=== PATIENT | female | born 1955 | race Caucasian/White ===

== ENCOUNTER → 2017-11-13 | Outpatient (CLI) | payer MEDICAID ==
[2017-10-19 10:53] VITALS: BMI 40.7
[~2017-11-13] MED LIST: ACET-2031 PO; ACET-3017 PO; ACET500T68 PO; ALB6.7R INH; ALBU2.5V36 INH; ALBU8.5H IH; AZIT-18 PO; AZIT500T47 PO; Advair; CEFU250T11 PO; CEP500 PO; CIP500 PO; CLIN75CA3 PO; CLOT15CR63 TP; CYCL10TA29 PO; CYCLOBENZAPRINE PO; DICL100G39 TP; DOC100 PO; DOCU-202 PO; DOXY-181 PO; DULO30CA35 PO; EFFEXOR PO; FLUC150T40 PO; FLUT16SP19 NS; FLUT1DIS28 IH; FURO-45 PO; FURO-47 PO; FURO40TA35 PO; GABA-503 PO; GABA-549 PO; HYDR-2966 PO; HYDR-3083 PO; HYDR-3104 PO; HYDR-385 PO; HYDR-4309 PO; HYDR1TAB PO; HYDR2TAB74 PO; HYDR50CA47 PO; IBUP800T37 PO; IPRA3AMP21 IH; LEVO-85 PO; LEVO50TA80 PO; LEVO750T27 PO; LEVO750T44 PO; LEVO75TA73 PO; LEVOTHYROXINE; LOR5 PO; LOR5/325 PO; LORA-1221 PO; MELO-149 PO; METH4TAB66 PO; MUPI15CR2 TP; NAPR500T31 PO; NO PRESCRIPTION MEDS; NO ROUTINE MEDS; OMEP40CA48 PO; OND4 PO; ONDA4TAB9 PO; ONDA4TAB97 PO; OXYC-865 PO; OXYC5CAP21 PO; PARO-243 PO; PER PO; POTA-23 PO; POTA20TA85 PO; PRAV80TA29 PO; PRAVASTATIN PO; PRE200PT GT; PRE200PT PO; PRED-1 PO; PRED-314 PO; PRED-420 PO; PRED20TA6 PO; PRED50TA22 PO; PREG100C44 PO; PREG150C33 PO; PREG75CA60 PO; PROM-110 PO; SIMV-49 PO; TIO18R INH; TRA50 PO; TRAM-420 PO; TRIA15OI20 TP; TYLENOL; VENL150C3 PO; VENL37.53 PO; VENL75CA4 PO; VENL75CA58 PO; [UNRECOGNIZED DRUG - CODE] PO; [UNRECOGNIZED DRUG - CODE] PO; [UNRECOGNIZED DRUG - REMARK]; compression stocking TOP
--- NOTE | 2017-11-13 13:42 | RADIOLOGY IMAGING REPORT ---
FACILITY: [facility] PATIENT NAME: Bushra Campos : 1955 MR: [id number] V: [id number] EXAM DATE: ORDERING PHYSICIAN: FRANCIS PEDRO TECHNOLOGIST: [place] [facility] [place]: Bushra Campos : 1955 Visit/Account:[id number] Date of Sevice: 11/13/2017 Exam type: SHOULDER MIN 2 VIEWS RIGHT History: Pain and no known injury Comparison: None. Findings: Two views of the right shoulder demonstrate mild narrowing of the right glenohumeral joint. There is no evidence of acute fracture dislocation or lytic or blastic lesion. There are mild degenerative c hanges at the right AC joint IMPRESSION: 1. Mild narrowing at the right glenohumeral joint. Report Dictated By: Annalee Palumbo MD at 11/13/2017 1:36 PM Report E-Signed By: Annalee Palumbo MD at 11/13/2017 1:37 PM WSN:[email or web address]
== END ==
LOC: RAD 11:57
PROVIDERS: ATTEND Internal Medicine
DX: M25.511 Pain in right shoulder (principal)

== ENCOUNTER → 2017-12-09 | Outpatient (CLI) | payer MEDICAID ==
[2017-10-19 10:53] VITALS: BMI 40.7
[~2017-12-09] MED LIST changes: +AZIT-17 PO
[2017-12-09 17:16] LABS: PLATELET COUNT, AUTOMATED 263 K/uL (150-450)
== END ==
LOC: LAB 16:43
PROVIDERS: ATTEND Internal Medicine
DX: R10.9 Unspecified abdominal pain (principal); M54.9 Dorsalgia, unspecified; E66.01 Morbid (severe) obesity due to excess calories; J44.9 Chronic obstructive pulmonary disease, unspecified; M19.90 Unspecified osteoarthritis, unspecified site; K75.81 Nonalcoholic steatohepatitis (NASH); Z96.642 Presence of left artificial hip joint; G89.29 Other chronic pain; Z68.41 Body mass index [BMI] 40.0-44.9, adult
CPT/HCPCS: 36415; 81001; 82040; 82150; 82247; 82310; 82374; 82435; 82565; 82947; 83690; 84075; 84132; 84155; 84295; 84443; 84450; 84460; 84520; 85025

== ENCOUNTER → 2018-01-08 | Outpatient (CLI) | payer MEDICAID ==
[2017-10-19 10:53] VITALS: BMI 40.7
== END ==
LOC: LAB 11:06
PROVIDERS: ATTEND Internal Medicine
DX: Z02.9 Encounter for administrative examinations, unspecified (principal)

== ENCOUNTER → 2018-01-08 | Outpatient (CLI) | payer MEDICAID ==
[2017-10-19 10:53] VITALS: BMI 40.7
--- NOTE | 2018-01-08 12:08 | RADIOLOGY IMAGING REPORT ---
[place] [facility] [place]: Bushra Campos : 1955 MR: [id number] V: [id number] EXAM DATE: ORDERING PHYSICIAN: FRANCIS PEDRO TECHNOLOGIST: Location: [facility] Patient: Bushra Campos : 1955 Visit/Account:[id number] Date of Sevice: 01/08/2018 Chest with lateral, two views. HISTORY: Cough for one month, COPD. COMPARISON: 11/02/2017. Mild cardiomegaly is unchanged. The aortic knob is minimally calcified. Pulmonary vessels are parker l. Interstitial markings are thickened bilaterally, unchanged. The lungs are voluminous. Mild stre aky densities are present in the lung bases. No pleural fluid. Degenerative changes are present in the spine. IMPRESSION: Mild cardiomegaly without arpita congestive heart failure. COPD. Mild bibasilar subsegmental atelectasis or pleural parenchymal scars. Report Dictated By: Faustino Wolf MD at 01/08/2018 12:01 PM Report E-Signed By: Faustino Wolf MD at 01/08/2018 12:04 PM WSN:[email or web address]
== END ==
LOC: LAB 11:05
PROVIDERS: ATTEND Internal Medicine
DX: J44.1 Chronic obstructive pulmonary disease with (acute) exacerbation (principal); I51.7 Cardiomegaly; R91.8 Other nonspecific abnormal finding of lung field; F11.90 Opioid use, unspecified, uncomplicated
CPT/HCPCS: 71046; 80305

== ENCOUNTER → 2018-03-12 | Outpatient (CLI) | payer MEDICARE ==
[2017-10-19 10:53] VITALS: BMI 40.7
[~2018-03-12] MED LIST changes: +MELO-207 PO; +MILN12.52 PO; +OMEP-125 PO
[2018-03-12 12:09] LABS: PLATELET COUNT, AUTOMATED 259 K/uL (150-450)
--- NOTE | 2018-03-12 13:22 | RADIOLOGY IMAGING REPORT ---
FACILITY: [facility] [place] PATIENT NAME: Bushra Campos : 1955 MR: [id number] V: [id number] EXAM DATE: ORDERING PHYSICIAN: FRANCIS PEDRO TECHNOLOGIST: Location: [facility] Patient: Bushra Campos : 1955 Visit/Account:[id number] Date of Sevice: 03/12/2018 Exam type: FOOT 2 VIEW LEFT History: Stepped on tack two months ago, still painful Comparison: None. Findings: Two views of the left foot reveal no evidence of acute fracture dislocation or radiopaque soft tissue foreign body. There is a hallux valgus deformity involving the left first MTP joint with mild degen erative changes. IMPRESSION: 1. No evidence of radiopaque foreign body. No evidence of acute fracture or dislocation Hallux valgus deformity of the left first MTP joint Report Dictated By: Annalee Palumbo MD at 03/12/2018 1:17 PM Report E-Signed By: Annalee Palumbo MD at 03/12/2018 1:18 PM WSN:[email or web address]
== END ==
LOC: RAD 11:48
PROVIDERS: ATTEND Internal Medicine
DX: M20.12 Hallux valgus (acquired), left foot (principal); M15.0 Primary generalized (osteo)arthritis; M79.672 Pain in left foot
CPT/HCPCS: 36415; 82040; 82247; 82310; 82374; 82435; 82465; 82565; 82947; 83036; 83718; 84075; 84132; 84155; 84295; 84443; 84450; 84460; 84478; 84520; 85025

== ENCOUNTER 2018-05-07 10:54 | Outpatient (RCR) | payer MEDICARE, MEDICAID ==
[2017-10-19 10:53] VITALS: Ht 160 cm; Wt 115.7 kg
[~2018-05-07] VITALS: Ht 160 cm; Wt 115.7 kg
[~2018-05-07 10:54] MED LIST changes: +DICL-192 PO; +IPRA3AMP10 IH; -IPRA3AMP21 IH; +MIL50PT PO
--- NOTE | 2018-05-07 13:09 | Medical Nutrition Therapy ---
Nutrition Anthropometrics Height (Inches): 63 Weight (Pounds): 268 BMI: 47.5 Reno Nutrition Score: Reno Nutrition Risk Score: Dietary Referral Nutrition Risk Factors: Nutrition Risk Comment: Nutrition/Food History Breakfast: skips or Palmer sausage muffin and 4 hash brown patties Lunch: skips Dinner: meat, veg, 2c potatoes or hungery man's TV dinner Snacks: fruit, diet pepsi, candy Nutritional Education Nutrition Education Topic: Weight Loss Diet Learning Barriers: Emotional (pt states hx of depression, seeing counselor- refused visti with [facility] staff today) Learning Readiness: Interested Teaching Methods: Discussion, Handout, Demonstration Response to Teaching: Verbalize understanding, Reinforcement needed Teaching Recipient: Patient Nutrition Counseling: Pt states is planning to have gastric bypass and would like nutrtional couseling as required by medicaid prior to surgery. Discussed importance of changing eating habits to make surgery successful. Pt is purchasing homestyle meal direct and will be eating these meals 3X/day. Identified meals that were < 500 kcal. Recommend pt have 2 snacks/day of 100 kcal with unlimited veg. Encouraged lower fat options for hash brown and regular yogurt. Discouraged skipping meals. Discussed standard portion sizes. Pt will start homestyle meals ~05/24. set up f/u one 06/04 @ 10:00. Will focus on emotional eating. Nutrition Monitoring & [address] RD Patient Assessment Time: 60 minutes Nutritional Comment: Provided 60 minutes MNT for wt loss with BMI 47.5 Copies To Copies to: FRANCIS PEDRO MD, BETH May 07, 2018 13:09
[2018-06-04] MEDS ORDERED: ALBU8.5H IH (08:24)
[2018-06-04] MEDS ORDERED: TIO18R INH (08:24)
[2018-06-04] MEDS ORDERED: IPRA3AMP10 IH (08:24)
[2018-06-04] MEDS ORDERED: SIMV-54 PO (08:27)
[2018-06-04] MEDS ORDERED: [UNRECOGNIZED DRUG - CODE] PO (08:27)
[2018-06-04] MEDS ORDERED: VAR05PT PO (08:31)
[2018-06-04] MEDS ORDERED: VARE1TAB3 PO (08:31)
--- NOTE | 2018-06-04 11:09 | Medical Nutrition Therapy ---
Nutrition Anthropometrics Height (Inches): 63 Weight (Pounds): 255 BMI: 45.2 Reno Nutrition Score: Reno Nutrition Risk Score: Dietary Referral Nutrition Risk Factors: Nutrition Risk Comment: Nutritional Education Nutrition Education Topic: Weight Loss Diet Learning Readiness: Interested Teaching Methods: Discussion, Handout Response to Teaching: Verbalize understanding Teaching Recipient: Patient Nutrition Counseling: Wt down 13# from last month. Pt was unable to get homestlye meal but is now on medicare and will start them this month. Pt has been monitoring kcal and limiting to 1500- 2000/day. Pt is working on changing eating habits: doing more grilling, not frying foods, limiting potatoes. Pt is also trying to incorporate more exercise. Has been walking into stores and using a bounce ball. Recommend pt also use bouce ball when on computer. Discussed emotional eating, recommend identifying hungar or emotional eating. Discussed methods to handle with distracting , haveing low kcal foods to snack on, taking walk, meditation. Also recommend pt discuss issues behind emotional eating with her counselor. Pt will f/u Jul 02 at 10:00. Nutrition Monitoring & Eval RD Patient Assessment Time: 45 minutes Nutritional Comment: Provided 45 minutes MNT for wt loss with BMI 45.2 Copies To Copies to: FRANCIS PEDRO MD, BETH Jun 04, 2018 11:09
[2018-06-08] MEDS ORDERED: FURO40TA35 PO (15:24)
[2018-06-25] MEDS ORDERED: ONDA4TAB PO (12:49)
== END 2018-06-11 ==
LOC: DIET 10:54
PROVIDERS: ATTEND Internal Medicine
DX: Z71.3 Dietary counseling and surveillance (principal); E66.01 Morbid (severe) obesity due to excess calories; Z68.42 Body mass index [BMI] 45.0-49.9, adult; M19.90 Unspecified osteoarthritis, unspecified site; G89.29 Other chronic pain
CPT/HCPCS: 97802; 97803

== ENCOUNTER 2018-07-06 10:00 | Outpatient (RCR) | payer MEDICARE, MEDICAID ==
[2017-10-19 10:53] VITALS: Ht 160 cm; Wt 114.3 kg
[~2018-07-06] VITALS: Ht 160 cm; Wt 114.3 kg
[~2018-07-06 10:00] MED LIST changes: +ONDA4TAB PO; +SIMV-54 PO; +VAR05PT PO; +VARE1TAB3 PO; +[UNRECOGNIZED DRUG - CODE] PO
--- NOTE | 2018-07-06 12:40 | Medical Nutrition Therapy ---
Nutrition Anthropometrics Height (Inches): 63 Weight (Pounds): 251 BMI: 44.4 Reno Nutrition Score: Reno Nutrition Risk Score: Dietary Referral Nutrition Risk Factors: Nutrition Risk Comment: Physical Findings Physical Appearance: Morbidly Obese 40+ Skin Appearance Skin Appearance: Edema Edema Location Modifier: Edema Location: Type of Edema: Degree of Edema: Gastrointestinal Symptoms GI Symtoms: Tube Present: Bowel Sounds: Recent Bowel Pattern: Stool Characteristics: Nutrition/Food History Breakfast: skips Lunch: homestyle meal or 4 c goulash or potates Dinner: Homstyle meal or 4 c pasta Snacks: carrots, diet soda Nutritional Education Nutrition Education Topic: Weight Loss Diet Learning Barriers: Emotional (binge eating issues) Learning Readiness: Eager, Interested Teaching Methods: Discussion, Handout, Demonstration Response to Teaching: Verbalize understanding, Reinforcement needed Teaching Recipient: Patient Nutrition Counseling: Wt is down 3# from last month, 17# from first session. Pt states has been stuggling with not eating enought and then binges. Pt's tends to skip meals and will undereat a day then will binge to a point where pt states she feels sick. Reviewed handout with tips to avoid binge eating. Discussed meal plan and recommend pt cont with 2 homstlye meal/day with added veg and 3c milk/day. Pt's usual portion sizes are large when she does eat. Will review portion control at next session onf 08/05. Nutrition Monitoring & Eval RD Patient Assessment Time: 60 minutes Nutritional Comment: Provided 60 minutes MNT for wt loss with BMI 44.4 Copies To Copies to: FRANCIS PEDRO MD ; FELICITA YEN Jul 06, 2018 12:40
[2018-08-05] MEDS ORDERED: ATOR40TA69 PO (10:30)
[2018-08-05] MEDS ORDERED: ONDA4TAB PO (10:30)
[2018-08-05] MEDS ORDERED: PRE200PT PO (10:30)
[2018-08-05] MEDS ORDERED: FLU60SYR36 IM (10:37)
--- NOTE | 2018-08-05 17:27 | Medical Nutrition Therapy ---
Nutrition Anthropometrics Height (Inches): 63 Weight (Pounds): 252 BMI: 44.6 Reno Nutrition Score: Reno Nutrition Risk Score: Dietary Referral Nutrition Risk Factors: Nutrition Risk Comment: Nutrition/Food History Breakfast: sausage, egg muffin and lg FF or skips Lunch: homestyle meals Dinner: homestyle meals Snacks: yogurt Nutritional Education Nutrition Education Topic: Weight Loss Diet Learning Readiness: Interested Teaching Methods: Discussion Response to Teaching: Verbalize understanding Teaching Recipient: Patient Nutrition Counseling: Pt states gets homestyle meals that are paid for with her medicaid benefits. Pt reports she has limited financial resources. Pt states however that she doesn't like the meals and will often augment them with other foods. Will look for alternative for homestyle meal. Recommended pt try MOW but pt states can't afford them. Pt states she does binge with foods. Discussed homestyle meals as good portion control and encouraged pt to measure foods to help with portion control. Pt states has a portion control plate but doesn't use it. Pt wasn't interested in measuring foods. Discussed exercise, pt states unable d/t knee. Pt indicated that she was more interested in having knee surgery than bypass surgery. Concern that pt may not be ready/willing to make diet changes for bypass surgery. Encouraged pt to discuss this with PCP. Pt will review her schedule and call for f/u. Nutrition Monitoring & Eval RD Patient Assessment Time: 30 minutes Nutritional Comment: Provided 30 minutes MNT for wt loss with BMI 44.6 Copies To Copies to: FRANCIS PEDRO MD ; FELICITA YEN Aug 05, 2018 15:56
== END 2018-08-10 ==
LOC: DIET 10:00
PROVIDERS: ATTEND Internal Medicine
DX: Z71.3 Dietary counseling and surveillance (principal); E66.01 Morbid (severe) obesity due to excess calories; Z68.42 Body mass index [BMI] 45.0-49.9, adult; M19.90 Unspecified osteoarthritis, unspecified site; G89.29 Other chronic pain
CPT/HCPCS: 97803

== ENCOUNTER 2018-09-08 11:31 | Outpatient (RCR) | payer MEDICARE, MEDICAID ==
[2017-10-19 10:53] VITALS: Wt 116.1 kg
--- NOTE | 2018-09-09 12:23 | Medical Nutrition Therapy ---
Nutrition Anthropometrics Height (Inches): 63 Weight (Pounds): 256 BMI: 45.3 Reno Nutrition Score: Reno Nutrition Risk Score: Dietary Referral Nutrition Risk Factors: Nutrition Risk Comment: Nutrition/Food History Breakfast: breakfast sandwich Lunch: Mom's meal Dinner: mom's meal Nutritional Education Nutrition Education Topic: Weight Loss Diet Learning Readiness: Interested Teaching Methods: Discussion Response to Teaching: Verbalize understanding Teaching Recipient: Patient Nutrition Counseling: late entry for 09/08: Wt up 5#. Pt has been ill and possibly eating high kcal comfort foods and decreased exercise. Pt has changed to Mom's meal. Upon reviewing meal, kcals are higher than Homestyle meals which may contribute to wt gain. However pt disliked homestyle meals and wouldn't eat them. Reviewed menus with pt and recommend she save juices for snack and not eat the desserts. Meal plan of 2 Mom's meals/day, breakfast sandwich and limiting snacks to veggies, lean luncheon meats and juices should be a wt loss plan. Pt will do 10 minutes of exercise ball/day. f/u schedule 09/29 @ 12:00 Nutrition Monitoring & Eval RD Patient Assessment Time: [address] Assessment Type: RD Education Nutritional Comment: Provided 60 minutes MNT for wt loss with BMI 45.3 Copies To Copies to: FRANCIS PEDRO MD ; FELICITA YEN Sep 09, 2018 12:23
[2018-09-10] MEDS ORDERED: CIPR-345 PO (11:35)
[2018-09-15] MEDS ORDERED: DICL-192 PO (08:24)
[2018-10-09] MEDS ORDERED: VARE1TAB3 PO (14:43)
== END 2018-10-13 ==
LOC: DIET 11:31
PROVIDERS: ATTEND Internal Medicine
DX: Z71.3 Dietary counseling and surveillance (principal); E66.01 Morbid (severe) obesity due to excess calories; Z68.42 Body mass index [BMI] 45.0-49.9, adult; M19.90 Unspecified osteoarthritis, unspecified site; G89.29 Other chronic pain
CPT/HCPCS: 97803

== ENCOUNTER → 2018-09-08 | Outpatient (CLI) | payer MEDICARE, MEDICAID ==
[2017-10-19 10:53] VITALS: BMI 40.7
[~2018-09-08] MED LIST changes: +ATOR40TA69 PO; +FLU60SYR36 IM; -HYDR-4309 PO; +HYDR-653 PO
[2018-09-08 11:46] LABS: PLATELET COUNT, AUTOMATED 282 K/uL (150-450)
[2018-09-08 12:00] LABS: LDL CHOLESTEROL 66 mg/dl
== END ==
LOC: LAB 11:29
PROVIDERS: ATTEND Internal Medicine
DX: J44.9 Chronic obstructive pulmonary disease, unspecified (principal); E78.5 Hyperlipidemia, unspecified; E66.01 Morbid (severe) obesity due to excess calories; M19.90 Unspecified osteoarthritis, unspecified site; G89.29 Other chronic pain; E03.9 Hypothyroidism, unspecified
CPT/HCPCS: 36415; 81001; 82040; 82247; 82310; 82374; 82435; 82465; 82565; 82947; 83718; 84075; 84132; 84155; 84295; 84443; 84450; 84460; 84478; 84520; 85025; 87088

== ENCOUNTER → 2018-09-24 | Outpatient (CLI) | payer MEDICARE, MEDICAID ==
[2017-10-19 10:53] VITALS: BMI 40.7
[~2018-09-24] MED LIST changes: +CIPR-345 PO
--- NOTE | 2018-09-24 13:54 | RADIOLOGY IMAGING REPORT ---
FACILITY: [facility] [place] PATIENT NAME: KEYANA MORLEY : [id number] MR: [id number] V: [id number] EXAM DATE: [id number] ORDERING PHYSICIAN: FRANCIS PEDRO TECHNOLOGIST: Daysi Jarvis PROCEDURE:BILATERAL DIGITAL SCREENING MAMMOGRAM WITH CAD ASSISTED INTERPRETATION & 3D TOMOSYNTHESIS COMPARISON:04/23/16 INDICATIONS:SCREENING FINDINGS: Breast parenchyma is predominantly fatty replaced. There are no mammographic findings concerning for malignancy. No significant interval change. DIAGNOSTIC CATEGORY 1--NEGATIVE. RECOMMENDATIONS: ROUTINE MAMMOGRAM AND CLINICAL EVALUATION IN 1 YEAR. IMPRESSION: BIRADS 1: Negative Dictated by: Dick Small on 09/24/2018 at 10:21 Transcribed by: RAS on 09/24/2018 at 10:34 Approved by: Dick Small on 09/24/2018 at 13:53 [facility]
--- NOTE | 2018-09-24 21:00 | RADIOLOGY IMAGING REPORT ---
[place] [facility] [place] NAME: Bushra Campos : 1955 MR: [id number] V: [id number] EXAM DATE: ORDERING PHYSICIAN: FRANCIS PEDRO TECHNOLOGIST: Location: [facility] [place] Patient: Bushra Campos : 1955 Visit/Account:[id number] Date of Sevice: 09/24/2018 Examination: SOFT TISSUE HEAD NECK Comparison: None. History: Right neck swelling. Findings: Standard ultrasound of the bilateral neck soft tissues is performed. No mass or fluid collection is identified. A few morphologically normal lymph nodes are present. No v ascular abnormality is identified. The visualized portions of the thyroid are unremarkable. IMPRESSION: Negative soft tissue neck ultrasound. Consider CT with contrast if further imaging evaluation of the reported soft tissue swelling is clinically indicated. Report Dictated By: Mauricio Middleton MD at 09/24/2018 8:47 PM Report E-Signed By: Mauricio Middleton MD at 09/24/2018 8:56 PM WSN:[id number]
== END ==
LOC: MAMO 01:50
PROVIDERS: ATTEND Internal Medicine
DX: Z12.31 Encounter for screening mammogram for malignant neoplasm of breast (principal); R22.1 Localized swelling, mass and lump, neck
CPT/HCPCS: 76536; 77063; 77067

== ENCOUNTER → 2018-11-11 | Outpatient (CLI) | payer MEDICARE, MEDICAID ==
[2017-10-19 10:53] VITALS: BMI 40.7
--- NOTE | 2018-11-11 10:25 | RADIOLOGY IMAGING REPORT ---
FACILITY: [facility] - [place] PATIENT NAME: Bushra Campos : 1955 MR: [id number] V: [id number] EXAM DATE: ORDERING PHYSICIAN: FRANCIS PEDRO TECHNOLOGIST: Location: [facility] Patient: Bushra Campos : 1955 Visit/Account:[id number] Date of Sevice: 11/11/2018 LIVER HISTORY: Elevated LFTs COMPARISON: None. FINDINGS: Liver: Mild heterogeneous hepatic echotexture. Nonspecific lobulated contour of the liver Otherwise negative. Gallbladder: Absent Common duct: Measures up to 8 mm which is within normal limits status post cholecystectomy. Pancreas: Partially obscured by bowel, visualized aspects unremarkable. Right kidney: Negative. Upper abdominal aorta and IVC: Patent. Ascites: None visualized. IMPRESSION: 1. Lobulated contour of the liver with heterogeneous hepatic is nonspecific however may be related t o chronic hepatocellular disease/cirrhosis. No visualized hepatoma. 2. Cholecystectomy. Report Dictated By: Cam De La Rosa MD at 11/11/2018 10:00 AM Report E-Signed By: Cam De La Rosa MD at 11/11/2018 10:03 AM WSN:[email or web address]
== END ==
LOC: US 02:36
PROVIDERS: ATTEND Internal Medicine
DX: R94.5 Abnormal results of liver function studies (principal); Z90.49 Acquired absence of other specified parts of digestive tract
CPT/HCPCS: 76705

== ENCOUNTER 2018-11-12 11:16 | Outpatient (RCR) | payer MEDICARE, MEDICAID ==
[2017-10-19 10:53] VITALS: Ht 160 cm; Wt 113.9 kg
[~2018-11-12] VITALS: Ht 160 cm; Wt 113.9 kg
[~2018-11-12 11:16] MED LIST changes: -GABA-503 PO; +GABA-533 PO
--- NOTE | 2018-11-12 12:50 | Medical Nutrition Therapy ---
Nutrition Anthropometrics Height (Inches): 63 Weight (Pounds): 251 BMI: 44.5 Reno Nutrition Score: Reno Nutrition Risk Score: Dietary Referral Nutrition Risk Factors: Nutrition Risk Comment: Nutritional Education Nutrition Education Topic: Weight Loss Diet Learning Barriers: Emotional Learning Readiness: Little Interest Teaching Methods: Discussion, Handout Response to Teaching: Verbalize understanding, Reinforcement needed Teaching Recipient: Patient Nutrition Counseling: Pt was no- show for appt in Sep. Came in Nov 05 but was unable to accomodate pt without an appointment. Wt is down 4# from last session in Aug. Wt is down 17# from initial session end of April. Pt was asked to keep track of foods for ~ 1 week to review and identify issues. Pt states did not do that. Pt states she skipped brft but had large Mc [employer]io FF and sausage egg muffin. (950 KCAL) Discussed kcal consumed and what would be lower kcal options. Provided fast food kcal guild. Pt states was going out for [employer]. discussed what she usually eats and what would be lower fat and lower kcal options. Pt stated will consider some of those ideas. Pt verbalized willingness to try lower kcal/fat foods but then reluctant to give up or make substitutions for the high kcal/sugar foods she enjoys. Provided handout on low kcal, easy meal and low kcal snacks. Stressed importance of limiting added sugars and fat and how these foods would not be well tolerated after bariatric surgery. Pt stated concern over having this surgery. Encouraged pt to discusses this with PCP and bariatric team. Goal for this month is to identify and limit added sugars and high fat foods. Stressed importance of changing eating habits now for success post bariatic surgery. Pt will call to make f/u appt. Nutrition Monitoring & Eval RD Patient Assessment Time: [address] Assessment Type: RD Education Nutritional Comment: Provided 45 minutes MNT for wt loss with BMI 44.5 Copies To Copies to: FRANCIS PEDRO MD ; FELICITA YEN Nov 12, 2018 12:50
[2018-11-12] MEDS ORDERED: TRAM-420 PO (14:13)
[2018-11-17] MEDS ORDERED: [UNRECOGNIZED DRUG - CODE] MC (09:50)
[2018-11-30] MEDS ORDERED: CYCL-277 PO (14:28)
[2018-11-30] MEDS ORDERED: PRED20TA6 PO (14:28)
[2018-11-30] MEDS ORDERED: [UNRECOGNIZED DRUG - CODE] PO (14:28)
[2018-11-30] MEDS ORDERED: DICL-192 PO (14:28)
== END 2018-11-12 18:00 | disposition home or self-care (01) ==
LOC: DIET 11:16
PROVIDERS: ATTEND Internal Medicine
DX: E66.01 Morbid (severe) obesity due to excess calories (principal); Z68.41 Body mass index [BMI] 40.0-44.9, adult; G89.29 Other chronic pain; M19.90 Unspecified osteoarthritis, unspecified site
CPT/HCPCS: 36415; 82040; 82247; 82310; 82374; 82435; 82565; 82947; 84075; 84132; 84155; 84295; 84450; 84460; 84520

== ENCOUNTER → 2018-11-12 | Outpatient (CLI) | payer MEDICARE, MEDICAID ==
[2017-10-19 10:53] VITALS: BMI 40.7
== END ==
LOC: LAB 13:08
PROVIDERS: ATTEND Internal Medicine
DX: Z02.9 Encounter for administrative examinations, unspecified (principal)

== ENCOUNTER 2018-11-17 11:12 | Emergency (ER) | payer MEDICARE, MEDICAID ==
[2017-10-19 10:53] VITALS: Wt 113.9 kg
[~2018-11-17 11:12] MED LIST changes: +[UNRECOGNIZED DRUG - CODE] MC
--- NOTE | 2018-11-17 11:26 | ER Report ---
History and Physical Time Seen By MD: 11:21 HPI/ROS CHIEF COMPLAINT: Arthritic pain HISTORY OF PRESENT ILLNESS: This is a 63-year-old female who presents to the emergency department for arthritis flareup. The patient was recently taken off her meloxicam, atorvastatin and Savella due to renal and liver function tests. She was placed on Tramadol which "is not helping". She is having a flareup in her knees and shoulders and hands. However the majority of the pain seems to be localized to the right knee and right shoulder. She denies fevers or chills. No nausea or vomiting. No dysuria or diarrhea. No chest pain or shortness of breath. REVIEW OF SYSTEMS: Respiratory: No cough, no dyspnea. Cardiovascular: No chest pain, no palpitations. Gastrointestinal: No vomiting, no abdominal pain. Musculoskeletal: As above. Allergies: Coded Allergies: Penicillins (Verified Allergy, Intermediate, MOUTH ULCERS, 11/17/18) Sulfa (Sulfonamide Antibiotics) (Verified Allergy, Intermediate, MOUTH ULCERS, 11/17/18) Home Meds Active Scripts Cyclobenzaprine Hcl (CYCLOBENZAPRINE HCL) 10 Mg Tablet, 5-10 MG PO BID PRN for muscle pain, #9 TAB 0 Refills Prov:RADHA ZHAO [facility] 11/17/18 Prednisone (PREDNISONE) 20 Mg Tablet, 20 MG PO BID, #10 TAB Prov:RADHA ZHAO [facility]- 11/17/18 Diaper,Brief,Adult,Disposable (ADULT BRIEF) 1 Each Each, CON MC Q30D for incontinence, #3 12 Refills 3 cases/month. Pt to use up to 8 briefs/day. Length of need: 99 months Dx: R32 & R15.9 NPI of physician: [id number] Prov:FRANCIS DELGADILLO MD 11/17/18 Tramadol Hcl (TRAMADOL HCL) 50 Mg Tablet, 50 MG PO BID, #30 TAB Prov:FRANCIS DELGADILLO MD 11/12/18 Varenicline Tartrate (CHANTIX) 1 Each Tab.ds.pk, 1 EACH PO BID, #60 TAB 2 Refills Prov:FRANCIS DELGADILLO MD 10/09/18 Levothyroxine Sodium (LEVOTHYROXINE SODIUM) 75 Mcg Tablet, 75 MCG PO QDAY, #90 TAB 4 Refills Prov:FRANCIS DELGADILLO MD 08/26/18 Ondansetron (ZOFRAN ODT) 4 Mg Tab.rapdis, 4 MG PO Q12H PRN for nausea, #30 TAB.RANJAN 3 Refills Prov:FRANCIS DELGADILLO MD 08/05/18 Pregabalin (LYRICA) 200 Mg Cap, 200 MG PO TID, #90 CAP 5 Refills Prov:FRANCIS DELGADILLO MD 08/05/18 Furosemide (LASIX) 40 Mg Tablet, 1 TAB PO DAILY PRN for edema, #90 TAB 1 Refill Prov:FRANCIS DELGADILLO MD 06/08/18 Ipratropium/Albuterol Sulfate (IPRAT-ALBUT 0.5-3(2.5) MG/3 ML) 3 Ml Ampul.neb, 3 ML IH Q4-6H PRN for SHORTNESS OF BREATH, #100 VIAL 9 Refills Prov:FRANCIS DELGADILLO MD 06/04/18 Albuterol Sulfate 90 Mcg/Act (PROAIR HFA 90 MCG/ACT) 8.5 Gm Hfa.aer.ad, 1-2 PUFF IH 3-4XD PRN for shortness of breath, #1 INHALER 9 Refills Prov:FRANCIS DELGADILLO MD 06/04/18 Tiotropium [place] (SPIRIVA) 18 Mcg/Cap Inh, 18 MCG INH DAILY, #1 INH 9 Refills Prov:FRANCIS DELGADILLO MD 06/04/18 Omeprazole (OMEPRAZOLE) 20 Mg Capsule.dr, 1 CAP PO QDAY, #90 CAP 3 Refills Prov:FRANCIS DELGADILLO MD 02/09/18 Venlafaxine Hcl (VENLAFAXINE HCL ER) 150 Mg Cap.er.24h, 150 MG PO QDAY for 90 Days, #90 CAP 3 Refills Prov:FRANCIS DELGADILLO MD 01/08/18 Fluticasone/Salmeterol (ADVAIR 250-50 DISKUS) 1 Each Disk.w.dev, 1 EACH IH BID, #1 DISK 11 Refills Prov:FRANCIS DELGADILLO MD 01/08/18 Clotrimazole (CLOTRIMAZOLE) 15 Gm Cream..g., 15 GM TP BID for 10 Days, #1 TUBE 0 Refills Prov:JIMMY MARIA MD 11/02/17 Discontinued Scripts Ciprofloxacin 250 Mg (CIPROFLOXACIN 250 MG) 250 Mg Tablet, 250 MG PO BID, #10 TAB Prov:FRANCIS DELGADILLO MD 09/10/18 Past Medical/Surgical History The patient has a past medical and surgical history of hypertension, hypercholesterolemia, wears oxygen at night, asthma, pneumonia, COPD, GERD, morbidly obese, gallbladder disease, clicks cystectomy, liver disease, hepatitis at age 12, kidney stones, UTIs, menopause, fibromyalgia, carpal tunnel, arthritis, chronic back pain, wears glasses, tendinitis, hypothyroidism, PTSD, anxiety, depression, appendectomy, tubal ligation, total hip replacement, adenoidectomy. Tonsillectomy. Reviewed Nurses Notes: Yes Hx Smoking: Yes Smoking Status: Former Smoker Exposure to Second Hand Smoke?: Yes (whole family smokes ) Hx Substance Use Disorder: Yes (Pain pills, doesn't recall their name. Hasn't taken pain pills lately) Hx Alcohol Use: No Constitutional Vital Sign - Last 24 Hours 11/17/18 11/17/18 11/17/18 11/17/18 11:21 11:25 11:27 11:30 Pulse 96 Resp 22 B/P (MAP) 127/74 127/74 (91) 123/73 (90) Pulse Ox 90 93 O2 Delivery Room Air 11/17/18 11/17/18 11/17/18 11/17/18 11:42 11:57 12:00 12:12 Pulse 91 87 85 B/P (MAP) 115/63 (80) Pulse Ox 94 93 93 11/17/18 11/17/18 11/17/18 11/17/18 12:27 12:30 12:42 12:47 Pulse 84 83 85 B/P (MAP) 134/69 (90) Pulse Ox 88 88 92 11/17/18 11/17/18 11/17/18 12:52 12:57 13:00 Pulse 81 81 B/P (MAP) 105/67 (80) Pulse Ox 95 92 Physical Exam General Appearance: The patient is alert, has no immediate need for airway protection and no current signs of toxicity. Eyes: Pupils equal and round no injection. Respiratory: Chest is non tender, lungs are clear to auscultation. Cardiac: regular rate and rhythm. Gastrointestinal: Abdomen is soft and non tender, no masses, bowel sounds normal. Musculoskeletal: Neck: Neck is supple and non tender. Extremities have full range of motion and are non tender. Skin: No rashes or lesions. DIFFERENTIAL DIAGNOSIS: After history and physical exam differential diagnosis was considered for gout, osteoarthritis flare, septic arthritis and influenza. Medical Decision Making Data Points Result Diagram: 11/17/18 1208 11/17/18 1208 Laboratory Hematology Test 11/17/18 12:08 Red Blood Count 4.21 M/uL (4.17-5.56) Mean Corpuscular Volume 85.9 fL (80.0-96.0) Mean Corpuscular Hemoglobin 27.8 pg (26.0-33.0) Mean Corpuscular Hemoglobin Concent 32.4 g/dL (32.0-36.0) Red Cell Distribution Width 17.1 % (11.5-14.5) Mean Platelet Volume 8.5 fL (7.2-11.1) Neutrophils (%) (Auto) 54.6 % (39.4-72.5) Lymphocytes (%) (Auto) 28.8 % (17.6-49.6) Monocytes (%) (Auto) 11.6 % (4.1-12.4) Eosinophils (%) (Auto) 3.7 % (0.4-6.7) Basophils (%) (Auto) 1.3 % (0.3-1.4) Nucleated RBC Relative Count (auto) 0.0 /100WBC Neutrophils # (Auto) 5.0 K/uL (2.0-7.4) Lymphocytes # (Auto) 2.6 K/uL (1.3-3.6) Monocytes # (Auto) 1.1 K/uL (0.3-1.0) Eosinophils # (Auto) 0.3 K/uL (0.0-0.5) Basophils # (Auto) 0.1 K/uL (0.0-0.1) Nucleated RBC Absolute Count (auto) 0.00 K/uL Sodium Level 139 mmol/L (137-145) Potassium Level 4.7 mmol/L (3.5-5.0) Chloride Level 108 mmol/L (98-107) Carbon Dioxide Level 25 mmol/L (22-31) Blood Urea Nitrogen 19 mg/dl (7-18) Creatinine 0.90 mg/dl (0.52-1.04) Glomerular Filtration Rate Calc > 60.0 Random Glucose 101 mg/dl (75-110) Calcium Level 9.1 mg/dl (8.4-10.2) Iron Level 43 ug/dl (37-170) Total Iron Binding Capacity 511 ug/dl (261-497) Percent Iron Saturation 8.4 % Ferritin 28 ng/ml (11-264) Total Bilirubin 0.5 mg/dl (0.2-1.3) Aspartate Amino Transf (AST/SGOT) 118 U/L (0-35) Alanine Aminotransferase (ALT/SGPT) 159 U/L (0-56) Alkaline Phosphatase 212 U/L (0-126) Total Protein 7.0 g/dl (6.3-8.2) Albumin 3.7 g/dl (3.5-5.0) Chemistry Test 11/17/18 12:08 White Blood Count 9.1 k/uL (4.5-11.0) Red Blood Count 4.21 M/uL (4.17-5.56) Hemoglobin 11.7 g/dL (12.0-16.0) Hematocrit 36.1 % (34.0-47.0) Mean Corpuscular Volume 85.9 fL (80.0-96.0) Mean Corpuscular Hemoglobin 27.8 pg (26.0-33.0) Mean Corpuscular Hemoglobin Concent 32.4 g/dL (32.0-36.0) Red Cell Distribution Width 17.1 % (11.5-14.5) Platelet Count 246 K/uL (150-450) Mean Platelet Volume 8.5 fL (7.2-11.1) Neutrophils (%) (Auto) 54.6 % (39.4-72.5) Lymphocytes (%) (Auto) 28.8 % (17.6-49.6) Monocytes (%) (Auto) 11.6 % (4.1-12.4) Eosinophils (%) (Auto) 3.7 % (0.4-6.7) Basophils (%) (Auto) 1.3 % (0.3-1.4) Nucleated RBC Relative Count (auto) 0.0 /100WBC Neutrophils # (Auto) 5.0 K/uL (2.0-7.4) Lymphocytes # (Auto) 2.6 K/uL (1.3-3.6) Monocytes # (Auto) 1.1 K/uL (0.3-1.0) Eosinophils # (Auto) 0.3 K/uL (0.0-0.5) Basophils # (Auto) 0.1 K/uL (0.0-0.1) Nucleated RBC Absolute Count (auto) 0.00 K/uL Glomerular Filtration Rate Calc > 60.0 Calcium Level 9.1 mg/dl (8.4-10.2) Iron Level 43 ug/dl (37-170) Total Iron Binding Capacity 511 ug/dl (261-497) Percent Iron Saturation 8.4 % Ferritin 28 ng/ml (11-264) Total Bilirubin 0.5 mg/dl (0.2-1.3) Aspartate Amino Transf (AST/SGOT) 118 U/L (0-35) Alanine Aminotransferase (ALT/SGPT) 159 U/L (0-56) Alkaline Phosphatase 212 U/L (0-126) Total Protein 7.0 g/dl (6.3-8.2) Albumin 3.7 g/dl (3.5-5.0) ED Course/Re-evaluation ED Course The patient was admitted to a room. A history and physical were obtained. Differential diagnoses were considered. A chemistry was collected. Chemistry showing AST 118, ALT 159, alk phosphatase 212, this is improved from November 12, where the AST was 181, ALT was 198, alk phosphatase was 259. I did review this with the patient. I also spoke with the patient's primary care provider. The patient was given 40 mg by mouth prednisone, 60 mg IM Norflex. I also did send her with a very limited prescription for Flexeril for her fibromyalgia, and a short steroid burst. The patient was instructed to follow-up with her primary care provider within one week for reevaluation and likely reevaluation of her liver function tests, in addition to any medication adjustments they may deem appropriate that time. The patient was in agreement with this plan of care and discharged home. Decision to Disposition Date: Nov 17, 2018 Decision to Disposition Time: 13:05 Depart Departure Latest Vital Signs Vital Signs Date Time Temp Pulse Resp B/P (MAP) Pulse Ox O2 Delivery O2 Flow Rate FiO2 1/8/19 13:00 105/67 (80) 11/17/18 12:57 81 92 11/17/18 11:21 22 Room Air Impression: Primary Impression: Osteoarthritis (arthritis due to wear and tear of joints) Additional Impressions: Chronic pain Elevated liver function tests Condition: Improved Disposition: HOME OR SELF-CARE Referrals: FRANCIS DELGADILLO MD (PCP) 1 Week New Scripts Cyclobenzaprine Hcl (CYCLOBENZAPRINE HCL) 10 Mg Tablet 5-10 MG PO BID PRN for muscle pain, #9 TAB 0 Refills Prov: RADHA ZHAO PILE DRIVING TECHNICIAN- 11/17/18 Prednisone (PREDNISONE) 20 Mg Tablet 20 MG PO BID, #10 TAB Prov: RADHA ZHAO [facility]- 11/17/18 Patient Instructions: Osteoarthritis (ED) Additional Instructions: Please follow up with Dr. Delgadillo within 1 week for reevaluation of your pain and medication adjustments. Take the flexeril as needed for muscular pain, it does work for Fibromyalgia. Take the prednisone burst for your joint pain and inflammation. Please drink plenty of water. Get plenty of rest. Return to the ED for any other concerns or worsening symptoms. Problem Qualifiers Primary Impression: Osteoarthritis (arthritis due to wear and tear of joints) Osteoarthritis location: multiple joints Osteoarthritis type: unspecified Qualified Codes: M15.9 - Polyosteoarthritis, unspecified Additional Impressions: Chronic pain Chronic pain type: other chronic pain Qualified Codes: G89.29 - Other chronic pain RADHA ZHAO [facility]- Nov 17, 2018 11:26
[2018-11-17 12:13] LABS: PLATELET COUNT, AUTOMATED 246 K/uL (150-450)
[2018-11-17] MEDS ORDERED: predniSONE 20 MG TAB PO ONE (12:40)
[2018-11-17] MEDS ORDERED: ORPHENADRINE 60MG/2ML INJ IM ONE (12:40)
[2018-11-17 13:00] VITALS: BP 105/67
[2018-11-17] MEDS ORDERED: CYCL10TA29 PO (13:02)
[2018-11-17] MEDS ORDERED: PRED20TA6 PO (13:02)
== END 2018-11-17 13:17 | disposition home or self-care (01) ==
LOC: ER 11:20
PROVIDERS: ATTEND Internal Medicine
DX: M15.9 Polyosteoarthritis, unspecified (principal); G89.29 Other chronic pain; R79.89 Other specified abnormal findings of blood chemistry
CPT/HCPCS: 36415; 80074; 81256; 82728; 83540; 83550; 85025; 86038; 96372; 99283; J2360; J7512; 82040; 82247; 82310; 82374; 82435; 82565; 82947; 84075; 84132; 84155; 84295; 84450; 84460; 84520

== ENCOUNTER 2018-11-26 11:21 | Emergency (ER) | payer MEDICARE, MEDICAID ==
[2017-10-19 10:53] VITALS: Wt 113.9 kg
--- NOTE | 2018-11-26 11:35 | ER Report ---
History and Physical Time Seen By MD: 11:34 Hx. of Stated Complaint: CHEST CONGESTION HPI/ROS CHIEF COMPLAINT: Chest congestion HISTORY OF PRESENT ILLNESS: This is a 63-year-old female who presents to the emergency department for chest congestion. Patient states that she has had increased chest congestion, nonproductive cough, increasing over the last several days. No fevers or chills. She also complains of right shoulder pain, she has chronic pain. No nausea vomiting. No diarrhea. No rashes, no headaches. Denies increased shortness of breath, she does have a history of COPD and congestive heart failure. REVIEW OF SYSTEMS: Constitutional: No fever, no chills. Eyes: No discharge. ENT: No sore throat. Cardiovascular: No chest pain, no palpitations. Respiratory: As above. Gastrointestinal: No abdominal pain, no vomiting. Genitourinary: No hematuria. Musculoskeletal: No back pain. Skin: No rashes. Neurological: No headache. Allergies: Coded Allergies: Penicillins (Verified Allergy, Intermediate, MOUTH ULCERS, 11/17/18) Sulfa (Sulfonamide Antibiotics) (Verified Allergy, Intermediate, MOUTH ULCERS, 11/17/18) Home Meds Active Scripts Lidocaine (Lidocaine) 5 % Adh..patch, 1 ADH.PATCH TOP Q12H PRN for prn, #1 PACK 0 Refills Prov:RADHA ZHAO [facility] 11/26/18 Cyclobenzaprine Hcl (CYCLOBENZAPRINE HCL) 10 Mg Tablet, 5-10 MG PO BID PRN for muscle pain, #9 TAB 0 Refills Prov:RADHA ZHAO [facility] 11/17/18 Prednisone (PREDNISONE) 20 Mg Tablet, 20 MG PO BID, #10 TAB Prov:RADHA ZHAO [facility] 11/17/18 Diaper,Brief,Adult,Disposable (ADULT BRIEF) 1 Each Each, CON Q30D for i ncontinence, #3 12 Refills 3 cases/month. Pt to use up to 8 briefs/day. Length of need: 99 months Dx: R32 & R15.9 NPI of physician: [id number] Prov:FRANCIS PEDRO MD 11/17/18 Tramadol Hcl (TRAMADOL HCL) 50 Mg Tablet, 50 MG PO BID, #30 TAB Prov:FRANCIS PEDRO MD 11/12/18 Varenicline Tartrate (CHANTIX) 1 Each Tab.ds.pk, 1 EACH PO BID, #60 TAB 2 Refill s Prov:FRANCIS PEDRO MD 10/09/18 Levothyroxine Sodium (LEVOTHYROXINE SODIUM) 75 Mcg Tablet, 75 MCG PO QDAY, #90 TAB 4 Refills Prov:FRANCIS PEDRO MD 08/26/18 Ondansetron (ZOFRAN ODT) 4 Mg Tab.rapdis, 4 MG PO Q12H PRN for nausea, #30 TAB.RANJAN 3 Refills Prov:FRANCIS PEDRO MD 08/05/18 Pregabalin (LYRICA) 200 Mg Cap, 200 MG PO TID, #90 CAP 5 Refills Prov:FRANCIS PEDRO MD 08/05/18 Furosemide (LASIX) 40 Mg Tablet, 1 TAB PO DAILY PRN for edema, #90 TAB 1 Refill Prov:FRANCIS PEDRO MD 06/08/18 Ipratropium/Albuterol Sulfate (IPRAT-ALBUT 0.5-3(2.5) MG/3 ML) 3 Ml Ampul.neb, 3 ML IH Q4-6H PRN for SHORTNESS OF BREATH, #100 VIAL 9 Refills Prov:FRANCIS PEDRO MD 06/04/18 Albuterol Sulfate 90 Mcg/Act (PROAIR HFA 90 MCG/ACT) 8.5 Gm Hfa.aer.ad, 1-2 PUFF IH 3-4XD PRN for shortness of breath, #1 INHALER 9 Refills Prov:FRANCIS PEDRO MD 06/04/18 Tiotropium [place] (SPIRIVA) 18 Mcg/Cap Inh, 18 MCG INH DAILY, #1 INH 9 Refills Prov:FRANCIS PEDRO MD 06/04/18 Omeprazole (OMEPRAZOLE) 20 Mg Capsule.dr, 1 CAP PO QDAY, #90 CAP 3 Refills Prov:FRANCIS PEDRO MD 02/09/18 Venlafaxine Hcl (VENLAFAXINE HCL ER) 150 Mg Cap.er.24h, 150 MG PO QDAY for 90 Days, #90 CAP 3 Refills Prov:FRANCIS PEDRO MD 01/08/18 Fluticasone/Salmeterol (ADVAIR 250-50 DISKUS) 1 Each Disk.w.dev, 1 EACH IH BID, #1 DISK 11 Refills Prov:FRANCIS PEDRO MD 01/08/18 Clotrimazole (CLOTRIMAZOLE) 15 Gm Cream..g., 15 GM TP BID for 10 Days, #1 TUBE 0 Refills Prov:JIMMY MARIA MD 11/02/17 Past Medical/Surgical History The patient has a past medical and surgical history of hypertension, hypercholesterolemia, wears oxygen at night, asthma, pneumonia, COPD, GERD, blad polly disease, infectious hepatitis, kidney stones, urinary tract infections, menopause, fibromyalgia, carpal tunnel syndrome, left hip and left knee arthritis, chronic back pain, wears glasses, tinnitus, hypothyroidism, chronic pain, PTSD, anxiety, depression, appendectomy, cholecystectomy, tubal ligation, total hip replacement, adenoidectomy and tonsillectomy. Reviewed Nurses Notes: Yes Hx Smoking: Yes Smoking Status: Former Smoker Exposure to Second Hand Smoke?: Yes (whole family smokes ) Hx Substance Use Disorder: Yes (Pain pills, doesn't recall their name. Hasn't taken pain pills lately) Hx Alcohol Use: No Constitutional Vital Sign - Last 24 Hours 11/26/18 11/26/18 11/26/18 11/26/18 11:21 11:28 11:30 11:46 Temp 98.3 Pulse ??? 99 Resp 20 B/P (MAP) 138/76 (96) 138/76 Pulse Ox 89 93 O2 Delivery Nasal Cannula O2 Flow Rate 1.0 11/26/18 11/26/18 11/26/18 11/26/18 11:46 11:51 11:52 12:00 Pulse 92 92 94 Resp 18 B/P (MAP) 109/61 (77) Pulse Ox 97 11/26/18 11/26/18 11/26/18 11/26/18 12:21 12:30 12:35 13:00 Pulse 89 ??? B/P (MAP) 108/54 (72) 120/52 (74) Pulse Ox 86 11/26/18 11/26/18 11/26/18 13:05 13:30 13:35 Pulse 89 86 B/P (MAP) 126/60 (82) Pulse Ox 95 99 Physical Exam General Appearance: The patient is alert, has no immediate need for airway protection and no signs of toxicity. Eyes: Pupils equal and round no pallor or injection. ENT, Mouth: Mucous membranes are moist. Respiratory: Slightly diminished in all little, coarse lung sounds in all little on exhalation. Cardiovascular: Regular rate and rhythm, very faint systolic murmur, no clicks or rubs. Gastrointestinal: Abdomen is soft and non tender, no masses, bowel sounds normal. Neurological: Alert and oriented 4. Moving all studies. Following all commands. No focal neuro deficits. Skin: Warm and dry, no rashes. Musculoskeletal: Neck is supple non tender. Extremities are nontender, nonswollen and have full range of motion. DIFFERENTIAL DIAGNOSIS: After history and physical exam differential diagnosis was considered for shortness of breath including but not limited to pulmonary infectious process, COPD, asthma, pulmonary embolus and congestive heart failure. Medical Decision Making Data Points Result Diagram: 11/26/18 1207 11/26/18 1207 Laboratory Hematology Test 11/26/18 12:07 Red Blood Count 4.12 M/uL (4.17-5.56) Mean Corpuscular Volume 84.4 fL (80.0-96.0) Mean Corpuscular Hemoglobin 28.7 pg (26.0-33.0) Mean Corpuscular Hemoglobin Concent 34.0 g/dL (32.0-36.0) Red Cell Distribution Width 16.7 % (11.5-14.5) Mean Platelet Volume 7.4 fL (7.2-11.1) Neutrophils (%) (Auto) 60.3 % (39.4-72.5) Lymphocytes (%) (Auto) 25.6 % (17.6-49.6) Monocytes (%) (Auto) 10.6 % (4.1-12.4) Eosinophils (%) (Auto) 2.8 % (0.4-6.7) Basophils (%) (Auto) 0.7 % (0.3-1.4) Nucleated RBC Relative Count (auto) 0.0 /100WBC Neutrophils # (Auto) 6.0 K/uL (2.0-7.4) Lymphocytes # (Auto) 2.6 K/uL (1.3-3.6) Monocytes # (Auto) 1.1 K/uL (0.3-1.0) Eosinophils # (Auto) 0.3 K/uL (0.0-0.5) Basophils # (Auto) 0.1 K/uL (0.0-0.1) Nucleated RBC Absolute Count (auto) 0.00 K/uL Sodium Level 136 mmol/L (137-145) Potassium Level 4.0 mmol/L (3.5-5.0) Chloride Level 104 mmol/L (98-107) Carbon Dioxide Level 24 mmol/L (22-31) Blood Urea Nitrogen 18 mg/dl (7-18) Creatinine 1.00 mg/dl (0.52-1.04) Glomerular Filtration Rate Calc 55.8 Random Glucose 183 mg/dl (75-110) Calcium Level 8.6 mg/dl (8.4-10.2) Total Bilirubin 0.3 mg/dl (0.2-1.3) Aspartate Amino Transf (AST/SGOT) 41 U/L (0-35) Alanine Aminotransferase (ALT/SGPT) 74 U/L (0-56) Alkaline Phosphatase 134 U/L (0-126) Total Protein 6.2 g/dl (6.3-8.2) Albumin 3.4 g/dl (3.5-5.0) Chemistry Test 11/26/18 12:07 White Blood Count 10.0 k/uL (4.5-11.0) Red Blood Count 4.12 M/uL (4.17-5.56) Hemoglobin 11.8 g/dL (12.0-16.0) Hematocrit 34.8 % (34.0-47.0) Mean Corpuscular Volume 84.4 fL (80.0-96.0) Mean Corpuscular Hemoglobin 28.7 pg (26.0-33.0) Mean Corpuscular Hemoglobin Concent 34.0 g/dL (32.0-36.0) Red Cell Distribution Width 16.7 % (11.5-14.5) Platelet Count 219 K/uL (150-450) Mean Platelet Volume 7.4 fL (7.2-11.1) Neutrophils (%) (Auto) 60.3 % (39.4-72.5) Lymphocytes (%) (Auto) 25.6 % (17.6-49.6) Monocytes (%) (Auto) 10.6 % (4.1-12.4) Eosinophils (%) (Auto) 2.8 % (0.4-6.7) Basophils (%) (Auto) 0.7 % (0.3-1.4) Nucleated RBC Relative Count (auto) 0.0 /100WBC Neutrophils # (Auto) 6.0 K/uL (2.0-7.4) Lymphocytes # (Auto) 2.6 K/uL (1.3-3.6) Monocytes # (Auto) 1.1 K/uL (0.3-1.0) Eosinophils # (Auto) 0.3 K/uL (0.0-0.5) Basophils # (Auto) 0.1 K/uL (0.0-0.1) Nucleated RBC Absolute Count (auto) 0.00 K/uL Glomerular Filtration Rate Calc 55.8 Calcium Level 8.6 mg/dl (8.4-10.2) Total Bilirubin 0.3 mg/dl (0.2-1.3) Aspartate Amino Transf (AST/SGOT) 41 U/L (0-35) Alanine Aminotransferase (ALT/SGPT) 74 U/L (0-56) Alkaline Phosphatase 134 U/L (0-126) Total Protein 6.2 g/dl (6.3-8.2) Albumin 3.4 g/dl (3.5-5.0) EKG/Imaging Imaging Location: [facility] - [place] Patient: Bushra Campos : 1955 Visit/Account:[id number] Date of Sevice: 11/26/2018 Study: Frontal and lateral views of the chest Indication: Cough Comparison study: August 06, 2018 Findings: PA and lateral views of the chest demonstrate no evidence of acute infiltrate. There is no evidence of pleural effusion. There is no evidence of pneumothorax. The mediastinal, cardiac, and diaphragmatic contours are unremarkable. The visualized bony structures are unremarkable. IMPRESSION: Unremarkable chest. Report Dictated By: Anthony Calabrese at 11/26/2018 1:06 PM Report E-Signed By: Anthony Calabrese at 11/26/2018 1:06 PM [email or web address]:[email or web address] ED Course/Re-evaluation ED Course The patient was admitted to room. A history and physical were obtained. Differential diagnoses were considered. A CBC, CMP were obtained. Two-view chest x-ray was negative for any acute cardiopulmonary process.CBC unremarkable, chemi stry showing sodium 136, glucose 183, AST 41, ALT 74 which have improved from the previous laboratory studies. A lidocaine patch was applied to the patient's right shoulder, she did have relief with the patch. I reviewed the imaging results and the laboratory studies with the patient. I did tell patient to follow-up with her primary care provider as scheduled next Friday, I did send her home with a prescription for lidocaine patches. Patient had no other questions or concerns at this time and was discharged home. Patient was agreeable with this plan care. Decision to Disposition Date: Nov 26, 2018 Decision to Disposition Time: 13:55 Depart Departure Latest Vital Signs Vital Signs Date Time Temp Pulse Resp B/P (MAP) Pulse Ox O2 Delivery O2 Flow Rate FiO2 11/26/18 13:35 86 99 11/26/18 13:30 126/60 (82) 11/26/18 11:52 18 11/26/18 11:46 Nasal Cannula 1.0 11/26/18 11:30 98.3 Impression: Primary Impression: Cough Additional Impression: Right shoulder pain Condition: Improved Disposition: HOME OR SELF-CARE Referrals: FRANCIS PEDRO MD (PCP) New Scripts Lidocaine (Lidocaine) 5 % Adh..patch 1 ADH.PATCH TOP Q12H PRN for prn, #1 PACK 0 Refills Prov: RADHA ZHAO-BC 11/26/18 Patient Instructions: Chronic Cough (DC), Shoulder Pain (ED) Additional Instructions: No concerning findings on the Chest Xray or the blood work. Continue taking your regular medications. Use the lidocaine patch as needed, on for 12 hours off for 12 hours. Get plenty of rest. Drink plenty of water. Return to the ED for any other concerns or worsening symptoms. Follow up with Elie on Friday. Problem Qualifiers Additional Impression: Right shoulder pain Chronicity: chronic Qualified Codes: M25.511 - Pain in right shoulder; G89.29 - Other chronic pain RADHA ZHAO SOCIOLOGY PROFESSOR-BC Nov 26, 2018 11:35
[2018-11-26] MEDS ORDERED: ALBUTEROL/IPRATROPIUM 3 ML NEB NEB ONE (11:45)
[2018-11-26] MEDS ORDERED: LIDOCAINE 5% PATCH TP SCH (12:10)
[2018-11-26 12:13] LABS: PLATELET COUNT, AUTOMATED 219 K/uL (150-450)
--- NOTE | 2018-11-26 13:15 | RADIOLOGY IMAGING REPORT ---
FACILITY: [facility] - [place] PATIENT NAME: Bushra Campos : 1955 MR: [id number] V: [id number] EXAM DATE: ORDERING PHYSICIAN: RADHA ZHAO TECHNOLOGIST: Location: [facility] [place] Patient: Bushra Campos : 1955 Visit/Account:[id number] Date of Sevice: 11/26/2018 Study: Frontal and lateral views of the chest Indication: Cough Comparison study: August 06, 2018 Findings: PA and lateral views of the chest demonstrate no evidence of acute infiltrate. There is no evidence of pleural effusion. There is no evidence of pneumothorax. The mediastinal, cardiac, and diaphragmatic contours are unremarkable. The visualized bony structures are unremarkable. IMPRESSION: Unremarkable chest. Report Dictated By: Anthony Calabrese at 11/26/2018 1:06 PM Report E-Signed By: Anthony Calabrese at 11/26/2018 1:06 PM [email or web address]:[email or web address]
[2018-11-26 13:30] VITALS: BP 126/60
[2018-11-26] MEDS ORDERED: LIDO700A19 TOP (13:58)
[2018-11-26] MEDS ORDERED: PATCH REMOVAL 1 EA TOP SCH (21:00)
[2018-11-30] MEDS ORDERED: PRED20TA6 PO (14:28)
[2018-11-30] MEDS ORDERED: [UNRECOGNIZED DRUG - CODE] PO (14:28)
[2018-11-30] MEDS ORDERED: DICL-192 PO (14:28)
[2018-11-30] MEDS ORDERED: CYCL-277 PO (14:28)
== END 2018-11-26 14:10 | disposition home or self-care (01) ==
LOC: ER 11:25
DX: R05 Cough (principal); M25.511 Pain in right shoulder; G89.29 Other chronic pain
CPT/HCPCS: 71046; 85025; 94640; 99283; A9270; J7620; 82040; 82247; 82310; 82374; 82435; 82565; 82947; 84075; 84132; 84155; 84295; 84450; 84460; 84520

== ENCOUNTER → 2018-12-21 | Outpatient (CLI) | payer MEDICARE, MEDICAID ==
[2017-10-19 10:53] VITALS: BMI 40.7
[~2018-12-21] MED LIST changes: +CYCL-277 PO; +LIDO700A19 TOP; +METF500T4 PO
[2018-12-21 12:43] LABS: PLATELET COUNT, AUTOMATED 199 K/uL (150-450)
== END ==
LOC: LAB 11:24
PROVIDERS: ATTEND Internal Medicine
DX: E11.9 Type 2 diabetes mellitus without complications (principal); R94.5 Abnormal results of liver function studies; E66.01 Morbid (severe) obesity due to excess calories; E78.5 Hyperlipidemia, unspecified; G89.29 Other chronic pain; Z68.41 Body mass index [BMI] 40.0-44.9, adult; R06.00 Dyspnea, unspecified
CPT/HCPCS: 36415; 81001; 82040; 82247; 82310; 82374; 82435; 82465; 82565; 82947; 83036; 83718; 83880; 84075; 84132; 84155; 84295; 84439; 84443; 84450; 84460; 84478; 84520; 85025

== ENCOUNTER → 2019-01-14 | Outpatient (CLI) | payer MEDICARE, MEDICAID ==
[2017-10-19 10:53] VITALS: BMI 40.7
[2019-01-14 12:15] LABS: PLATELET COUNT, AUTOMATED 225 K/uL (150-450)
== END ==
LOC: LAB 11:55
PROVIDERS: ATTEND Internal Medicine
DX: J44.9 Chronic obstructive pulmonary disease, unspecified (principal); G89.29 Other chronic pain; E11.9 Type 2 diabetes mellitus without complications; R06.00 Dyspnea, unspecified; R94.5 Abnormal results of liver function studies; E78.5 Hyperlipidemia, unspecified; E66.01 Morbid (severe) obesity due to excess calories; Z68.41 Body mass index [BMI] 40.0-44.9, adult
CPT/HCPCS: 36415; 82040; 82247; 82310; 82374; 82435; 82465; 82565; 82947; 83036; 83718; 84075; 84132; 84155; 84295; 84443; 84450; 84460; 84478; 84520; 85025

== ENCOUNTER 2019-01-19 14:14 | Emergency (ER) | payer MEDICARE, MEDICAID ==
[2017-10-19 10:53] VITALS: Wt 114.1 kg
--- NOTE | 2019-01-19 15:05 | ER Report ---
History and Physical Time Seen By : 14:47 Hx. of Stated Complaint: PT INVESTMENT ACCOUNTING CLERK TOLD HER TO COME TO ER FOR HIGH PULSE RATE AND HIGH BP AT HOME. PT STATES SHE HAS HER NORMAL MORNING HEADACHE. HPI/ROS CHIEF COMPLAINT: SENT IN BY HER VISITING NURSE FOR HTN HISTORY OF PRESENT ILLNESS: Pt states that she has [facility] who comes to her home to visit and check on her. Today her visiting INVESTMENT ACCOUNTING CLERK took her vitals and was concerned because her blood pressure was 159/90 and her heart rate was 105 which both were above her baseline. Since pt has been in the emergency room her blood pressure has been at her normal baseline 128/76. PT states that she has had a runny nose. no cough. no chest pain or abdominal pain. Pt states she is concerned because her liver enzymes have been elevated and her pcp has changed some of her medications to try to help her liver enzymes. Pt has not had her influneza shot and is asking for one in ED.. REVIEW OF SYSTEMS: Constitutional: No fever, no chills. Eyes: No discharge. ENT: No sore throat. + runny nose Cardiovascular: No chest pain, no palpitations. Respiratory: No cough, no shortness of breath. Gastrointestinal: No abdominal pain, no vomiting. Genitourinary: No hematuria. Musculoskeletal: No back pain. Skin: No rashes. Neurological: No headache. Allergies: Coded Allergies: Penicillins (Verified Allergy, Intermediate, MOUTH ULCERS, 11/17/18) Sulfa (Sulfonamide Antibiotics) (Verified Allergy, Intermediate, MOUTH ULCERS, 11/17/18) Home Meds Active Scripts Fluticasone/Salmeterol (ADVAIR 250-50 DISKUS) 1 Each Disk.w.dev, 1 EACH IH BID for 90 Days, #1 DISK 4 Refills Prov:FRANCIS PEDRO MD 01/14/19 Cyclobenzaprine Hcl (CYCLOBENZAPRINE HCL) 5 Mg Tablet, 5 MG PO QDAY PRN for muscle pain, #30 TAB 1 Refill Prov:FRANCIS PEDRO MD 12/24/18 Metformin Hcl (METFORMIN HCL ER) 500 Mg Tab.er.24, 1 TAB PO QDAY, #30 TAB 3 Refills Prov:FRANCIS PEDRO MD 12/21/18 Simvastatin (SIMVASTATIN) 20 Mg Tablet, 20 MG PO HS, #30 TAB 3 Refills Prov:FRANCIS PEDRO MD 12/21/18 Milnacipran (SAVELLA) 100 Mg Tablet, 100 MG PO BID, #60 TAB 6 Refills Prov:FRANCIS PEDRO MD 11/30/18 Diclofenac Sodium (DICLOFENAC SODIUM) 50 Mg Tablet.dr, 50 MG PO BID PRN for pain, #60 TAB 4 Refills Prov:FRANCIS PEDRO MD 11/30/18 Diaper,Brief,Adult,Disposable (ADULT BRIEF) 1 Each Each, CON MC Q30D for incontinence, #3 12 Refills 3 cases/month. Pt to use up to 8 briefs/day. Length of need: 99 months Dx: R32 & R15.9 NPI of physician: [id number] Prov:FRANCIS PEDRO MD 11/17/18 Levothyroxine Sodium (LEVOTHYROXINE SODIUM) 75 Mcg Tablet, 75 MCG PO QDAY, #90 TAB 4 Refills Prov:FRANCIS PEDRO MD 08/26/18 Pregabalin (LYRICA) 200 Mg Cap, 200 MG PO TID, #90 CAP 5 Refills Prov:FRANCIS PEDRO MD 08/05/18 Furosemide (LASIX) 40 Mg Tablet, 1 TAB PO DAILY PRN for edema, #90 TAB 1 Refill Prov:FRANCIS PEDRO MD 06/08/18 Ipratropium/Albuterol Sulfate (IPRAT-ALBUT 0.5-3(2.5) MG/3 ML) 3 Ml Ampul.neb, 3 ML IH Q4-6H PRN for SHORTNESS OF BREATH, #100 VIAL 9 Refills Prov:FRANCIS PEDRO MD 06/04/18 Albuterol Sulfate 90 Mcg/Act (PROAIR HFA 90 MCG/ACT) 8.5 Gm Hfa.aer.ad, 1-2 PUFF IH 3-4XD PRN for shortness of breath, #1 INHALER 9 Refills Prov:FRANCIS PEDRO MD 06/04/18 Tiotropium [place] (SPIRIVA) 18 Mcg/Cap Inh, 18 MCG INH DAILY, #1 INH 9 Refills Prov:FRANCIS PEDRO MD 06/04/18 Omeprazole (OMEPRAZOLE) 20 Mg Capsule.dr, 1 CAP PO QDAY, #90 CAP 3 Refills Prov:FRANCIS PEDRO MD 02/09/18 Venlafaxine Hcl (VENLAFAXINE HCL ER) 150 Mg Cap.er.24h, 150 MG PO QDAY for 90 Days, #90 CAP 3 Refills Prov:FRANCIS PEDRO MD 01/08/18 Discontinued Scripts Varenicline Tartrate (CHANTIX) 1 Each Tab.ds.pk, 1 EACH PO BID, #60 TAB 2 Refill s Prov:FRANCIS PEDRO MD 10/09/18 Past Medical/Surgical History Pmhx: Dm2, hyperlipid, asthma, copd, hepatitis, kidney stones, back pain, osteoporosis, anxiety, depression,hypothyroid PShx: L hip, tubal Ta, appy bernarda Reviewed Nurses Notes: Yes Old Medical Records Reviewed: Yes Hx Smoking: Yes Smoking Status: Former Smoker Exposure to Second Hand Smoke?: Yes (whole family smokes ) Hx Substance Use Disorder: Yes (Pain pills, doesn't recall their name. Hasn't taken pain pills lately) Hx Alcohol Use: No Constitutional Vital Sign - Last 24 Hours 01/19/19 01/19/19 01/19/19 01/19/19 14:24 14:24 14:29 14:30 Temp 99.0 Pulse 103 105 Resp 22 13 B/P (MAP) 131/75 131/75 (93) 123/68 (86) Pulse Ox 88 96 O2 Delivery Room Air 01/19/19 01/19/19 01/19/19 01/19/19 14:44 14:59 15:00 15:14 Pulse 105 104 ??? Resp 17 30 9 B/P (MAP) 112/76 (88) Pulse Ox 93 94 80 01/19/19 01/19/19 01/19/19 01/19/19 15:29 15:30 15:44 15:59 Pulse 93 94 93 Resp 13 22 10 B/P (MAP) 115/61 (79) Pulse Ox 93 91 95 01/19/19 16:00 B/P (MAP) 125/69 (87) Physical Exam General Appearance: The patient is alert, has no immediate need for airway protection and no signs of toxicity. Eyes: Pupils equal and round no pallor or injection, EOMI ENT: no pharyngeal erythema or exudates, Mucous membranes are moist, TM are nl b/l Respiratory: There are no retractions, lungs are clear to auscultation. Cardiovascular: Regular rate and rhythm. pulses are equal and symmetrical Gastrointestinal: Abdomen is soft and non tender, no masses, bowel sounds normal, no guarding, no rigidity or rebound Neurological: Cranial nerves II-XII grossly intact, no sensory or motor loss Skin: Warm and dry, no rashes. Musculoskeletal: Neck is supple non tender, no vertebral tenderness Extremities are nontender, nonswollen and have full range of motion. DIFFERENTIAL DIAGNOSIS: After history and physical exam differential diagnosis was considered for influneza, sinusitis, hepatitis, medicaiton reaction, viral illness, essential htn Medical Decision Making Data Points Result Diagram: 01/19/19 1515 01/19/19 1515 Laboratory Hematology Test 01/19/19 15:15 01/19/19 15:27 Red Blood Count 4.52 M/uL (4.17-5.56) Mean Corpuscular Volume 85.4 fL (80.0-96.0) Mean Corpuscular Hemoglobin 27.2 pg (26.0-33.0) Mean Corpuscular Hemoglobin Concent 31.9 g/dL (32.0-36.0) Red Cell Distribution Width 18.5 % (11.5-14.5) Mean Platelet Volume 7.9 fL (7.2-11.1) Neutrophils (%) (Auto) 53.1 % (39.4-72.5) Lymphocytes (%) (Auto) 26.7 % (17.6-49.6) Monocytes (%) (Auto) 11.7 % (4.1-12.4) Eosinophils (%) (Auto) 7.6 % (0.4-6.7) Basophils (%) (Auto) 0.9 % (0.3-1.4) Nucleated RBC Relative Count (auto) 0.0 /100WBC Neutrophils # (Auto) 5.8 K/uL (2.0-7.4) Lymphocytes # (Auto) 2.9 K/uL (1.3-3.6) Monocytes # (Auto) 1.3 K/uL (0.3-1.0) Eosinophils # (Auto) 0.8 K/uL (0.0-0.5) Basophils # (Auto) 0.1 K/uL (0.0-0.1) Nucleated RBC Absolute Count (auto) 0.00 K/uL Peripheral Blood Smear No Y/N Sodium Level 142 mmol/L (137-145) Potassium Level 4.2 mmol/L (3.5-5.0) Chloride Level 106 mmol/L (98-107) Carbon Dioxide Level 29 mmol/L (22-31) Blood Urea Nitrogen 14 mg/dl (7-18) Creatinine 0.90 mg/dl (0.52-1.04) Glomerular Filtration Rate Calc > 60.0 Random Glucose 66 mg/dl (75-110) Calcium Level 9.3 mg/dl (8.4-10.2) Total Bilirubin 0.5 mg/dl (0.2-1.3) Aspartate Amino Transf (AST/SGOT) 54 U/L (0-35) Alanine Aminotransferase (ALT/SGPT) 87 U/L (0-56) Alkaline Phosphatase 119 U/L (0-126) Total Protein 7.0 g/dl (6.3-8.2) Albumin 4.1 g/dl (3.5-5.0) Influenza Virus Type A (PCR) Negative (NEGATIVE) Influenza Virus Type B (PCR) Negative (NEGATIVE) Chemistry Test 01/19/19 15:15 01/19/19 15:27 White Blood Count 10.9 k/uL (4.5-11.0) Red Blood Count 4.52 M/uL (4.17-5.56) Hemoglobin 12.3 g/dL (12.0-16.0) Hematocrit 38.6 % (34.0-47.0) Mean Corpuscular Volume 85.4 fL (80.0-96.0) Mean Corpuscular Hemoglobin 27.2 pg (26.0-33.0) Mean Corpuscular Hemoglobin Concent 31.9 g/dL (32.0-36.0) Red Cell Distribution Width 18.5 % (11.5-14.5) Platelet Count 258 K/uL (150-450) Mean Platelet Volume 7.9 fL (7.2-11.1) Neutrophils (%) (Auto) 53.1 % (39.4-72.5) Lymphocytes (%) (Auto) 26.7 % (17.6-49.6) Monocytes (%) (Auto) 11.7 % (4.1-12.4) Eosinophils (%) (Auto) 7.6 % (0.4-6.7) Basophils (%) (Auto) 0.9 % (0.3-1.4) Nucleated RBC Relative Count (auto) 0.0 /100WBC Neutrophils # (Auto) 5.8 K/uL (2.0-7.4) Lymphocytes # (Auto) 2.9 K/uL (1.3-3.6) Monocytes # (Auto) 1.3 K/uL (0.3-1.0) Eosinophils # (Auto) 0.8 K/uL (0.0-0.5) Basophils # (Auto) 0.1 K/uL (0.0-0.1) Nucleated RBC Absolute Count (auto) 0.00 K/uL Peripheral Blood Smear No Y/N Glomerular Filtration Rate Calc > 60.0 Calcium Level 9.3 mg/dl (8.4-10.2) Total Bilirubin 0.5 mg/dl (0.2-1.3) Aspartate Amino Transf (AST/SGOT) 54 U/L (0-35) Alanine Aminotransferase (ALT/SGPT) 87 U/L (0-56) Alkaline Phosphatase 119 U/L (0-126) Total Protein 7.0 g/dl (6.3-8.2) Albumin 4.1 g/dl (3.5-5.0) Influenza Virus Type A (PCR) Negative (NEGATIVE) Influenza Virus Type B (PCR) Negative (NEGATIVE) ED Course/Re-evaluation ED Course check labs 01/19/2019 4:43:35 pm Pt still without any complaints. Blood pressure has been fluctuationg between 112/69-130/84 while in the emergency room. Pts liver enzymes are still elevated. Pt has an appt with pcp on of this month for follow up. Hepatitis panel pending. Pt is requesting influenza shot to be given to her prior to her d/c home. Pt is asking to go home. Decision to Disposition Date: Jan 19, 2019 Decision to Disposition Time: 16:45 Depart Departure Latest Vital Signs Vital Signs Date Time Temp Pulse Resp B/P (MAP) Pulse Ox O2 Delivery O2 Flow Rate FiO2 01/19/19 16:00 125/69 (87) 01/19/19 15:59 93 10 95 01/19/19 14:24 99.0 Room Air Impression: Primary Impression: Benign hypertension Additional Impression: Elevated liver function tests Condition: Improved Disposition: HOME OR SELF-CARE Referrals: FRANCIS PEDRO MD (PCP) Keep current appointment Patient Instructions: GENERAL ER DISCHARGE INSTRUCTIONS Additional Instructions: Follow up with your family doctor as scheduled. If any concerns develop prior to seeing your doctor you can return to the emergency room. We gave you your influenza shot in the emergency room. Your Hepatitis panel is pending. Problem Qualifiers RADHA RENEE DO Jan 19, 2019 15:05
[2019-01-19 15:38] LABS: PLATELET COUNT, AUTOMATED 258 K/uL (150-450)
[2019-01-19 16:00] VITALS: BP 125/69
[2019-01-19] MEDS ORDERED: INFLUENZA VIRUS VAC 0.5ML SYR IM ONLY ONE (16:45)
== END 2019-01-19 17:08 | disposition home or self-care (01) ==
LOC: ER 15:00
DX: I10 Essential (primary) hypertension (principal); R79.89 Other specified abnormal findings of blood chemistry; Z23 Encounter for immunization
CPT/HCPCS: 80074; 85025; 87502; 90471; 99283; Q2037; 82040; 82247; 82310; 82374; 82435; 82565; 82947; 84075; 84132; 84155; 84295; 84450; 84460; 84520; 90674

== ENCOUNTER 2019-02-20 13:34 | Inpatient (IN) | payer MEDICARE, MEDICAID ==
[2019-02-20] VITALS (7 sets, daily range): BP systolic 75–101; BP diastolic 48–68
[~2019-02-20] VITALS: Ht 162.6 cm; Wt 119.5 kg
[~2019-02-20 13:34] MED LIST changes: -DOXY-228 PO
--- NOTE | 2019-02-20 13:43 | ER Report ---
History and Physical Time Seen By MD: 13:42 HPI/ROS CHIEF COMPLAINT: Aches and chills HISTORY OF PRESENT ILLNESS: This is a 63-year-old female who presents to emergency department for aches and chills. Patient states that she woke up this morning around 8:00, had aches and chills, subjective fevers, with increased coughing. Patient decided come in for further evaluation. No chest pain or increasing shortness of breath. No rashes, no headaches. REVIEW OF SYSTEMS: Constitutional: As above. Eyes: No discharge. ENT: No sore throat. Cardiovascular: No chest pain, no palpitations. Respiratory: As above. Gastrointestinal: No abdominal pain, no vomiting. Genitourinary: No hematuria. Musculoskeletal: No back pain. Skin: No rashes. Neurological: No headache. Allergies: Coded Allergies: Penicillins (Verified Allergy, Intermediate, MOUTH ULCERS, 11/17/18) Sulfa (Sulfonamide Antibiotics) (Verified Allergy, Intermediate, MOUTH ULCERS, 11/17/18) Home Meds Active Scripts Doxycycline Hyclate (DOXYCYCLINE HYCLATE) 100 Mg Tablet.dr, 100 MG PO BID for 7 Days, #14 TAB 0 Refills Prov:RADHA ZHAO CINDER CRUSHER OPERATOR-BC 02/20/19 Pregabalin (LYRICA) 200 Mg Cap, 200 MG PO TID, #90 CAP 5 Refills Prov:FRANCIS DELGADILLO MD 02/16/19 Fluticasone/Salmeterol (ADVAIR 250-50 DISKUS) 1 Each Disk.w.dev, 1 EACH IH BID for 90 Days, #1 DISK 4 Refills Prov:FRANCIS DELGADILLO MD 01/14/19 Cyclobenzaprine Hcl (CYCLOBENZAPRINE HCL) 5 Mg Tablet, 5 MG PO QDAY PRN for muscle pain, #30 TAB 1 Refill Prov:FRANCIS DELGADILLO MD 12/24/18 Metformin Hcl (METFORMIN HCL ER) 500 Mg Tab.er.24, 1 TAB PO QDAY, #30 TAB 3 Refills Prov:FRANCIS DELGADILLO MD 12/21/18 Simvastatin (SIMVASTATIN) 20 Mg Tablet, 20 MG PO HS, #30 TAB 3 Refills Prov:FRANCIS DELGADILLO MD 12/21/18 Milnacipran (SAVELLA) 100 Mg Tablet, 100 MG PO BID, #60 TAB 6 Refills Prov:FRANCIS DELGADILLO MD 11/30/18 Diclofenac Sodium (DICLOFENAC SODIUM) 50 Mg Tablet.dr, 50 MG PO BID PRN for pain, #60 TAB 4 Refills Prov:FRANCIS DELGADILLO MD 11/30/18 Diaper,Brief,Adult,Disposable (ADULT BRIEF) 1 Each Each, CON MC Q30D for incontinence, #3 12 Refills 3 cases/month. Pt to use up to 8 briefs/day. Length of need: 99 months Dx: R32 & R15.9 NPI of physician: [id number] Prov:FRANCIS DELGADILLO MD 11/17/18 Levothyroxine Sodium (LEVOTHYROXINE SODIUM) 75 Mcg Tablet, 75 MCG PO QDAY, #90 TAB 4 Refills Prov:FRANCIS DELGADILLO MD 08/26/18 Furosemide (LASIX) 40 Mg Tablet, 1 TAB PO DAILY PRN for edema, #90 TAB 1 Refill Prov:FRANCIS DELGADILLO MD 06/08/18 Ipratropium/Albuterol Sulfate (IPRAT-ALBUT 0.5-3(2.5) MG/3 ML) 3 Ml Ampul.neb, 3 ML IH Q4-6H PRN for SHORTNESS OF BREATH, #100 VIAL 9 Refills Prov:FRANCIS DELGADILLO MD 06/04/18 Albuterol Sulfate 90 Mcg/Act (PROAIR HFA 90 MCG/ACT) 8.5 Gm Hfa.aer.ad, 1-2 PUFF IH 3-4XD PRN for shortness of breath, #1 INHALER 9 Refills Prov:FRANCIS DELGADILLO MD 06/04/18 Tiotropium [place] (SPIRIVA) 18 Mcg/Cap Inh, 18 MCG INH DAILY, #1 INH 9 Refills Prov:FRANCIS DELGADILLO MD 06/04/18 Omeprazole (OMEPRAZOLE) 20 Mg Capsule.dr, 1 CAP PO QDAY, #90 CAP 3 Refills Prov:FRANCIS DELGADILLO MD 02/09/18 Venlafaxine Hcl (VENLAFAXINE HCL ER) 150 Mg Cap.er.24h, 150 MG PO QDAY for 90 Days, #90 CAP 3 Refills Prov:FRANCIS DELGADILLO MD 01/08/18 Past Medical/Surgical History The patient has a past medical and surgical history of hypertension, hypercholesterolemia, wears oxygen at night, asthma, pneumonia, COPD, GERD, bladder disease, infectious hepatitis, kidney stones, urinary tract infections, menopause, fibromyalgia, carpal tunnel syndrome, left hip and left knee arthritis, chronic back pain, wears glasses, tinnitus, hypothyroidism, chronic pain, PTSD, anxiety, depression, appendectomy, cholecystectomy, tubal ligation, total hip replacement, adenoidectomy and tonsillectomy. Reviewed Nurses Notes: Yes Hx Smoking: Yes Smoking Status: Former Smoker Exposure to Second Hand Smoke?: Yes (whole family smokes ) Hx Substance Use Disorder: Yes (Pain pills, doesn't recall their name. Hasn't taken pain pills lately) Hx Alcohol Use: No Constitutional Vital Sign - Last 24 Hours 02/20/19 02/20/19 02/20/19 02/20/19 13:40 13:41 13:45 14:00 Temp 101.2 Pulse 117 Resp 20 B/P (MAP) 88/57 (67) 88/57 98/49 (65) 94/50 (65) Pulse Ox 93 O2 Delivery Nasal Cannula 02/20/19 02/20/19 02/20/19 02/20/19 14:04 14:30 14:34 14:59 Pulse 116 112 110 Resp 16 B/P (MAP) 107/51 (69) Pulse Ox 90 91 02/20/19 02/20/19 02/20/19 02/20/19 14:59 15:00 15:04 15:04 Pulse 110 111 Resp 14 B/P (MAP) 82/66 (71) Pulse Ox 95 93 O2 Delivery Nasal Cannula O2 Flow Rate 4.0 02/20/19 15:30 B/P (MAP) 98/66 (77) Physical Exam General Appearance: The patient is alert, has no immediate need for airway protection and no signs of toxicity. Eyes: Pupils equal and round no pallor or injection. ENT, Mouth: Mucous membranes are moist. Respiratory: There are no retractions, lungs are diminished in all little, clear throughout. Cardiovascular: Regular rate and rhythm, no murmurs, clicks or rubs. Gastrointestinal: Abdomen is soft and non tender, no masses, bowel sounds norm al. Neurological: Alert and oriented 4. Moving all extremities. Following all commands. No focal neuro deficits. Skin: Warm and dry, no rashes. Musculoskeletal: Neck is supple non tender. Extremities are nontender, nonswollen and have full range of motion. DIFFERENTIAL DIAGNOSIS: After history and physical exam differential diagnosis was considered for adult fever including but not limited to viral syndromes including influenza, urinary tract infection, pneumonia and sepsis. Medical Decision Making Data Points Result Diagram: 02/20/19 1330 02/20/19 1330 Laboratory Hematology Test 02/20/19 13:30 Red Blood Count 4.68 M/uL (4.17-5.56) Mean Corpuscular Volume 85.4 fL (80.0-96.0) Mean Corpuscular Hemoglobin 27.0 pg (26.0-33.0) Mean Corpuscular Hemoglobin Concent 31.6 g/dL (32.0-36.0) Red Cell Distribution Width 17.7 % (11.5-14.5) Mean Platelet Volume 8.1 fL (7.2-11.1) Neutrophils (%) (Auto) 86.8 % (39.4-72.5) Lymphocytes (%) (Auto) 7.2 % (17.6-49.6) Monocytes (%) (Auto) 5.2 % (4.1-12.4) Eosinophils (%) (Auto) 0.5 % (0.4-6.7) Basophils (%) (Auto) 0.3 % (0.3-1.4) Nucleated RBC Relative Count (auto) 0.0 /100WBC Neutrophils # (Auto) 14.7 K/uL (2.0-7.4) Lymphocytes # (Auto) 1.2 K/uL (1.3-3.6) Monocytes # (Auto) 0.9 K/uL (0.3-1.0) Eosinophils # (Auto) 0.1 K/uL (0.0-0.5) Basophils # (Auto) 0.1 K/uL (0.0-0.1) Nucleated RBC Absolute Count (auto) 0.00 K/uL Peripheral Blood Smear No Y/N Sodium Level 141 mmol/L (137-145) Potassium Level 3.3 mmol/L (3.5-5.0) Chloride Level 105 mmol/L (98-107) Carbon Dioxide Level 25 mmol/L (22-31) Blood Urea Nitrogen 15 mg/dl (7-18) Creatinine 1.20 mg/dl (0.52-1.04) Glomerular Filtration Rate Calc 45.2 Random Glucose 106 mg/dl (75-110) Calcium Level 9.5 mg/dl (8.4-10.2) Influenza Virus Type A (PCR) Negative (NEGATIVE) Influenza Virus Type B (PCR) Negative (NEGATIVE) Chemistry Test 02/20/19 13:30 White Blood Count 16.9 k/uL (4.5-11.0) Red Blood Count 4.68 M/uL (4.17-5.56) Hemoglobin 12.6 g/dL (12.0-16.0) Hematocrit 40.0 % (34.0-47.0) Mean Corpuscular Volume 85.4 fL (80.0-96.0) Mean Corpuscular Hemoglobin 27.0 pg (26.0-33.0) Mean Corpuscular Hemoglobin Concent 31.6 g/dL (32.0-36.0) Red Cell Distribution Width 17.7 % (11.5-14.5) Platelet Count 233 K/uL (150-450) Mean Platelet Volume 8.1 fL (7.2-11.1) Neutrophils (%) (Auto) 86.8 % (39.4-72.5) Lymphocytes (%) (Auto) 7.2 % (17.6-49.6) Monocytes (%) (Auto) 5.2 % (4.1-12.4) Eosinophils (%) (Auto) 0.5 % (0.4-6.7) Basophils (%) (Auto) 0.3 % (0.3-1.4) Nucleated RBC Relative Count (auto) 0.0 /100WBC Neutrophils # (Auto) 14.7 K/uL (2.0-7.4) Lymphocytes # (Auto) 1.2 K/uL (1.3-3.6) Monocytes # (Auto) 0.9 K/uL (0.3-1.0) Eosinophils # (Auto) 0.1 K/uL (0.0-0.5) Basophils # (Auto) 0.1 K/uL (0.0-0.1) Nucleated RBC Absolute Count (auto) 0.00 K/uL Peripheral Blood Smear No Y/N Glomerular Filtration Rate Calc 45.2 Calcium Level 9.5 mg/dl (8.4-10.2) Influenza Virus Type A (PCR) Negative (NEGATIVE) Influenza Virus Type B (PCR) Negative (NEGATIVE) EKG/Imaging Imaging Location: [facility] [place] Patient: Bushra Campos : 1955 Visit/Account:[id number] Date of Sevice: 02/20/2019 Chest with lateral, 2 views. HISTORY: Cough, chills, fever. COMPARISON: 11/26/2018. The heart size is upper limits of normal. The ascending aorta is slightly elongated. The aortic knob is minimally calcified. Pulmonary vessels are normal. Hazy airspace infiltrate is present in the posterior lung bases. Streaky densities are present in the lateral lung bases bilaterally. The right lateral and posterior costophrenic sulci are mildly blunted. Degenerative changes are present in the spine. IMPRESSION: Bibasilar lung infiltrates consistent with pneumonia. Bibasilar subsegmental atelectasis or pleural parenchymal scars. Small right pleural effusion or thickening. Report Dictated By: Faustino Wolf MD at 02/20/2019 2:24 PM Report E-Signed By: Faustino Wolf MD at 02/20/2019 2:27 PM WSN:[id number] ED Course/Re-evaluation Clinical Indication for ER IV: Hydration, IV Access ED Course The patient was admitted to room. A history of physical obtained. Differential diagnoses were considered. An IV was started. A CBC, CMP, blood cultures were obtained. CBC showing white count of 16.9 with a left shift, creatinine 1.20, negative influenza. Initially given a 500 mL normal saline bolus. Chest x-ray consistent with bibasilar pneumonia. I updated patient on her laboratory studies and the results of the chest x-ray. I had planned on discharging the patient home and having her follow-up early next week with Dr. Degladillo, however she remained mildly tachycardic with episodes of hypotension, I did speak with Dr. Vinicio Zavala, she has been admitted to the medical unit for pneumonia. 02/20/2019 3:26:14 pm I did speak with Dr. Vinicio Zavala, the hospitalist on- call, he will evaluate the patient for possible admission. Dr. Vinicio Zavala did come down, evaluated patient's she was admitted to the medical unit for bilateral pneumonia. Decision to Disposition Date: Feb 20, 2019 Decision to Disposition Time: 15:51 Depart Departure Latest Vital Signs Vital Signs Date Time Temp Pulse Resp B/P (MAP) Pulse Ox O2 Delivery O2 Flow Rate FiO2 02/20/19 15:30 98/66 (77) 02/20/19 15:04 111 93 02/20/19 15:04 14 02/20/19 14:59 Nasal Cannula 4.0 02/20/19 13:41 101.2 Impression: Primary Impression: Community acquired bacterial pneumonia Condition: Improved Disposition: Admitted from ER Referrals: FRANCIS DELGADILLO MD (PCP) 1 Week New Scripts Doxycycline Hyclate (DOXYCYCLINE HYCLATE) 100 Mg Tablet. 100 MG PO BID for 7 Days, #14 TAB 0 Refills Prov: RADHA ZHAO-PATTI 02/20/19 Patient Instructions: Community Acquired Pneumonia (DC) Additional Instructions: You then prescribed doxycycline for your pneumonia. Use your oxygen 24 hours a day for the next week. Use your nebulizers as needed. Follow-up with Dr. Delgadillo within 1 week for reevaluation. Take ibuprofen or Tylenol as needed for aches and pains. Be sure to drink plenty of water. Get plenty of rest. Return to the ER for any other concerns or worsening symptoms. RADHA ZHAO CINDER CRUSHER OPERATOR-BC Feb 20, 2019 13:42
[2019-02-20 14:04] LABS: PLATELET COUNT, AUTOMATED 233 K/uL (150-450)
--- NOTE | 2019-02-20 14:31 | RADIOLOGY IMAGING REPORT ---
FACILITY: [facility] - [place], [place] PATIENT NAME: Bushra Campos : 1955 MR: [id number] V: [id number] EXAM DATE: ORDERING PHYSICIAN: RADHA ZHAO TECHNOLOGIST: Location: [facility] Patient: Bushra Campos : 1955 Visit/Account:[id number] Date of Sevice: 02/20/2019 Chest with lateral, 2 views. HISTORY: Cough, chills, fever. COMPARISON: 11/26/2018. The heart size is upper limits of normal. The ascending aorta is slightly elongated. The aortic knob is minimally calcified. Pulmonary vessels are normal. Hazy airspace infiltrate is present in the post erior lung bases. Streaky densities are present in the lateral lung bases bilaterally. The right late ral and posterior costophrenic sulci are mildly blunted. Degenerative changes are present in the spin e. IMPRESSION: Bibasilar lung infiltrates consistent with pneumonia. Bibasilar subsegmental atelectasis or pleural parenchymal scars. Small right pleural effusion or thickening. Report Dictated By: Faustino Wolf MD at 02/20/2019 2:24 PM Report E-Signed By: Faustino Wolf MD at 02/20/2019 2:27 PM WSN:[id number]
[2019-02-20] MEDS ORDERED: KETOROLAC 30 MG/ML VIAL IVP ONE (14:45)
[2019-02-20] MEDS ORDERED: NS(*) 0.9% 500 ML BAG 500 ML IV ONE (14:45)
[2019-02-20] MEDS ORDERED: ALBUTEROL/IPRATROPIUM 3 ML NEB NEB ONE (14:45)
[2019-02-20] MEDS ORDERED: DOXY-228 PO (14:45)
[2019-02-20] MEDS ORDERED: ONDANSETRON 4 MG/2 ML VIAL IVP PRN (16:00)
[2019-02-20] MEDS ORDERED: FLUSH 10 ML SYR IVP PRN (16:00)
--- NOTE | 2019-02-20 16:26 | History & Physical ---
History of Present Illness History of Present Illness 63yo female with obesity, COPD and T2DM who came to the ER for cough, chills and diffuse body pain. She started coughing a couple of days ago. There was very little sputum production. This morning she woke up with chills. She was sweaty during the day. She had nausea and a loose stool this morning. No SOB/ vomiting/CP. She stopped smoking 2 years ago. In the ER, she had a fever to 101.3, mildly tachycardic and hypoxic. Normally, wears O2 just at night. She was given Toradol and 500cc of NS. History Problems: (1) COPD (chronic obstructive pulmonary disease) Status: Chronic (2) Anxiety and depression Status: Chronic (3) GERD (gastroesophageal reflux disease) Status: Chronic (4) Hyperlipemia Status: Chronic (5) Hypothyroidism Status: Chronic (6) Diabetes mellitus, type 2 Status: Chronic (7) Hyperlipidemia (8) Chronic back pain Status: Chronic (9) Personal history of smoking Home Meds Active Scripts Doxycycline Hyclate (DOXYCYCLINE HYCLATE) 100 Mg Tablet.dr, 100 MG PO BID for 7 Days, #14 TAB 0 Refills Prov:RADHA ZHAO FIN[employer]SEM[employer]Y INSPECTOR-BC 02/20/19 Pregabalin (LYRICA) 200 Mg Cap, 200 MG PO TID, #90 CAP 5 Refills Prov:FRANCIS PEDRO MD 02/16/19 Fluticasone/Salmeterol (ADVAIR 250-50 DISKUS) 1 Each Disk.w.dev, 1 EACH IH BID for 90 Days, #1 DISK 4 Refills Prov:FRANCIS PEDRO MD 01/14/19 Cyclobenzaprine Hcl (CYCLOBENZAPRINE HCL) 5 Mg Tablet, 5 MG PO QDAY PRN for muscle pain, #30 TAB 1 Refill Prov:FRANCIS PEDRO MD 12/24/18 Metformin Hcl (METFORMIN HCL ER) 500 Mg Tab.er.24, 1 TAB PO QDAY, #30 TAB 3 Refills Prov:FRANCIS PEDRO MD 12/21/18 Simvastatin (SIMVASTATIN) 20 Mg Tablet, 20 MG PO HS, #30 TAB 3 Refills Prov:FRANCIS PEDRO MD 12/21/18 Milnacipran (SAVELLA) 100 Mg Tablet, 100 MG PO BID, #60 TAB 6 Refills Prov:FRANCIS PEDRO MD 11/30/18 Diclofenac Sodium (DICLOFENAC SODIUM) 50 Mg Tablet.dr, 50 MG PO BID PRN for pain, #60 TAB 4 Refills Prov:FRANCIS PEDRO MD 11/30/18 Diaper,Brief,Adult,Disposable (ADULT BRIEF) 1 Each Each, CON MC Q30D for incontinence, #3 12 Refills 3 cases/month. Pt to use up to 8 briefs/day. Length of need: 99 months Dx: R32 & R15.9 NPI of physician: [id number] Prov:FRANCIS PEDRO MD 11/17/18 Levothyroxine Sodium (LEVOTHYROXINE SODIUM) 75 Mcg Tablet, 75 MCG PO QDAY, #90 TAB 4 Refills Prov:FRANCIS PEDRO MD 08/26/18 Furosemide (LASIX) 40 Mg Tablet, 1 TAB PO DAILY PRN for edema, #90 TAB 1 Refill Prov:FRANCIS PEDRO MD 06/08/18 Ipratropium/Albuterol Sulfate (IPRAT-ALBUT 0.5-3(2.5) MG/3 ML) 3 Ml Ampul.neb, 3 ML IH Q4-6H PRN for SHORTNESS OF BREATH, #100 VIAL 9 Refills Prov:FRANCIS PEDRO MD 06/04/18 Albuterol Sulfate 90 Mcg/Act (PROAIR HFA 90 MCG/ACT) 8.5 Gm Hfa.aer.ad, 1-2 PUFF IH 3-4XD PRN for shortness of breath, #1 INHALER 9 Refills Prov:FRANCIS PEDRO MD 06/04/18 Tiotropium Traphill (SPIRIVA) 18 Mcg/Cap Inh, 18 MCG INH DAILY, #1 INH 9 Refills Prov:FRANCIS PEDRO MD 06/04/18 Omeprazole (OMEPRAZOLE) 20 Mg Capsule.dr, 1 CAP PO QDAY, #90 CAP 3 Refills Prov:FRANCIS PEDRO MD 02/09/18 Venlafaxine Hcl (VENLAFAXINE HCL ER) 150 Mg Cap.er.24h, 150 MG PO QDAY for 90 Days, #90 CAP 3 Refills Prov:FRANCIS PEDRO MD 01/08/18 Allergies: Coded Allergies: Penicillins (Verified Allergy, Intermediate, MOUTH ULCERS, 11/17/18) Sulfa (Sulfonamide Antibiotics) (Verified Allergy, Intermediate, MOUTH ULCERS, 11/17/18) Patient History: Angina FATHER, , Age:79 Cervical cancer MOTHER, , Age:72 FH: LA (myocardial infarction) MOTHER, , Age:72 FH: hypertension FATHER, , Age:79 MOTHER, , Age:72 FH: leukemia BROTHER OR SISTER, Onset:5 FH: stroke BROTHER OR SISTER Groin hernia FATHER, , Age:79 Hx Smoking: Yes Smoking Status: Former Smoker Exposure to Second Hand Smoke?: Yes (whole family smokes ) Caffeine Intake: Coffee, Soda Caffeine/Cups Per Day: 1 Cup coffee, multiple cans (4-5) of diet Coke every day Hx Alcohol Use: No Hx Substance Use Disorder: Yes (Pain pills, doesn't recall their name. Hasn't taken pain pills lately) Social Drug Use: Never Review of Systems All Systems Reviewed/Normal: Yes, Except as Noted Exam Vital Signs Vital Signs Date Time Temp Pulse Resp B/P (MAP) Pulse Ox O2 Delivery O2 Flow Rate FiO2 02/20/19 15:04 110 14 02/20/19 14:59 95 Nasal Cannula 4.0 02/20/19 13:41 101.2 88/57 General Appearance: Alert, Awake, Other (mild increased wob) Eyes: PERRLA ENT: Moist Mucous Membranes Cardiovascular: Other (borderline tachy, no m/r/g) Respiratory: Other (exp crackles in right base. Trace insp crackles in left base. Diffuse exp wheezes anteriorly.) GI: Abd Soft and Non-Tender Extremities: No Edema Integumentary: No Jaundice, No Cyanosis Medical Decision Making Data Points Result Diagram: 02/20/19 1330 02/20/19 1330 Item Value Date Time Creatinine 1.20 mg/dl H 02/20/19 1330 Creatinine 0.90 mg/dl 01/19/19 1515 Blood Urea Nitrogen 14 mg/dl 01/19/19 1515 Blood Urea Nitrogen 15 mg/dl 02/20/19 1330 Potassium Level 3.3 mmol/L L 02/20/19 1330 Potassium Level 4.2 mmol/L 01/19/19 1515 Random Glucose 106 mg/dl 02/20/19 1330 Random Glucose 66 mg/dl L 01/19/19 1515 Neutrophils (%) (Auto) 86.8 % H 02/20/19 1330 Lymphocytes (%) (Auto) 7.2 % L 02/20/19 1330 Monocytes (%) (Auto) 5.2 % 02/20/19 1330 Eosinophils (%) (Auto) 0.5 % 02/20/19 1330 Basophils (%) (Auto) 0.3 % 02/20/19 1330 Nucleated RBC Relative Count (auto) 0.0 /100WBC 02/20/19 1330 Neutrophils # (Auto) 14.7 K/uL H 02/20/19 1330 Influenza Virus Type A (PCR) Negative 02/20/19 1330 Influenza Virus Type B (PCR) Negative 02/20/19 1330 EKG / Imaging Imaging CXR - Bibasilar lung infiltrates consistent with pneumonia. Bibasilar subsegmental atelectasis or pleural parenchymal scars. Small right pleural effusion or thickening. Assessment and Plan Problems: (1) Community acquired pneumonia Status: Acute Assessment & Plan: She presented with a couple days of a non-productive cough and a day of chills and myalgia. She had a fever to 101.2, hr to 110, elevated creatinine, hypoxia and borderline hypotensive. CXR c/w with a likely RLL pneumonia. She will be started on Rocephin and Doxycycline after blood cultures drawn. She will started on IV steroids for a probable COPD exacerbation and low jourdan BP. Will check lactate and start breathing treatments. Check a lactate and base IVF on it. (2) Acute renal failure Status: Acute Assessment & Plan: Baseline creatine about 0.9. Today it is 1.2. Will hydrate, hold NSAID/Lasix and follow. (3) COPD (chronic obstructive pulmonary disease) Status: Chronic Assessment & Plan: Some exp wheezing anteriorly. Continue Advair, Spiriva, DuoNeb and prn Albuterol. Starting IV steroids. (4) Diabetes mellitus, type 2 Status: Chronic Assessment & Plan: Hold metformin and use SSI level 2. (5) Chronic pain Status: Chronic Assessment & Plan: Continue chornic Lyrica, Savella, but will hold diclofenac secondary to elevated creatinine. (6) Anxiety and depression Status: Chronic Assessment & Plan: Continue chronic venlafaxine. (7) GERD (gastroesophageal reflux disease) Status: Chronic Assessment & Plan: Chronically on Prilosec, but will use Protonix in the hospital. (8) Morbid obesity with BMI of 45.0-49.9, adult Status: Chronic Copies to: FRANCIS PEDRO MD ; Venous Thromboembolism Antithrombotics Is Pt On Any Antithrombotics?: No Exam Sepsis Risk: Possible Severe Sepsis Risk OSCAR VOSS MD Feb 20, 2019 16:26
[2019-02-20] MEDS: NS(*) 0.9% 1000 ML BAG 1,000 ML IV PRN (17:10)
[2019-02-20] MEDS: methylPREDNIS SUCC 125 MG/2ML IVP SCH (17:11)
[2019-02-20] MEDS: cefTRIAXone(*) 2 GM VIAL 2 GM in NS(*) 0.9% 100 ML MINI-BAG 100 ML IVPB SCH (17:19)
[2019-02-20] MEDS ORDERED: LR(*) 1000 ML BAG 1,000 ML IV ONE ×2 (17:25)
[2019-02-20] MEDS: ACETAMINOPHEN 325 MG TAB PO PRN ×2 (17:49→23:45)
[2019-02-20] MEDS: DOXYCYCLINE HYCL 100 MG VIAL 100 MG in NS(*) 0.9% 250 ML BAG 250 ML IV SCH (17:56)
[2019-02-20] MEDS: ALBUTEROL/IPRATROPIUM 3 ML NEB NEB SCH (18:00)
[2019-02-20] MEDS: SALMETEROL/FLUTIC 250/50 1 INH INH SCH (18:00)
[2019-02-20] MEDS: ALBUTEROL 2.5 MG/3 ML NEB NEB PRN (19:42)
[2019-02-20] MEDS: guaiFENesin 600 MG TABCR PO SCH (20:30)
[2019-02-20] MEDS: SIMVASTATIN 20 MG TAB PO SCH (20:30)
[2019-02-20] MEDS: MILNACIPRAN 50 MG PO SCH (20:30)
[2019-02-20] MEDS: CYCLOBENZAPRINE HCL 10 MG TAB PO PRN (20:31)
[2019-02-20] MEDS: PREGABALIN PO SCH (20:31)
[2019-02-20] MEDS: INSULIN HUM LISPRO 100 UN/ML 3 ML VIAL SUBQ PRN (20:35)
[2019-02-20] MEDS ORDERED: PREGABALIN 50 MG CAPSULE PO SCH (21:00)
[2019-02-20] MEDS ORDERED: methylPREDNIS SUCC 125 MG/2ML IVP ONE (21:15)
--- NOTE | 2019-02-20 21:24 | Miscellaneous Provider Note ---
Miscellaneous Provider Note Note The patient appears more comfortable. Still with mild WOB. O2 requirement has increased to 7 liters. SBP 85-101. HR about 110. Lactate elevated 6.3 and increased to 7.7 despite a 2 liter LR bolus. I suspect that the increasing lactate is partly elevated because of metformin use. She will be moved to the ICU to be watched closely. Will give SoluMedrol 125mg, and 500cc bolus of LR. Check ABG, Lactate, and CMP in a couple hours. OSCAR VOSS MD Feb 20, 2019 21:24
[2019-02-20] MEDS ORDERED: LR 500 ML BAG 500 ML IV ONE (22:40)
[2019-02-20] MEDS ORDERED: LR(*) 1000 ML BAG 1,000 ML ONE (22:48)
[2019-02-21] VITALS (63 sets, daily range): BP systolic 75–140; BP diastolic 46–91; Ht 162.6 cm; Wt 119.5 kg
[2019-02-21] MEDS ORDERED: NOREPINE BITAR* 4 MG/4 ML AMP 4 MG in D5W(*) 250 ML BAG 246 ML IV PRN (00:25)
--- NOTE | 2019-02-21 00:28 | Procedure Note ---
Central Line Procedure Note Indication for Central Line: pressor use and blood draws Consent Signed: Yes Central Line Lumen: Triple Central Line Procedure: Chlorhexidine Prep Central Line Position: R Femoral Anesthesia Used: 1% Lidocaine CC's of Anesthesia: 5 Complications: None Central Line Post Position: Sutured, Confirmed Blood Return Comment US was used to identify the vein. The patient was sterilely prepped and draped. The vein was again visualized and then cannulated with the first attempt with US guidance. Dark, non-pulsatile blood was obtained. The triple lumen catheter was placed using Seldinger technique. OSCAR VOSS MD Feb 21, 2019 00:28
[2019-02-21] MEDS: methylPREDNIS SUCC 125 MG/2ML IVP SCH ×3 (01:34→16:33)
[2019-02-21] MEDS ORDERED: VANCOMYCIN(*) 1 GM VIAL 2.5 GM in NS(*) 0.9% 500 ML BAG 500 ML IVPB ONE (05:00)
[2019-02-21] MEDS: SALMETEROL/FLUTIC 250/50 1 INH INH SCH ×2 (05:16→18:42)
[2019-02-21] MEDS: ALBUTEROL/IPRATROPIUM 3 ML NEB NEB SCH ×3 (05:16→18:42)
[2019-02-21] MEDS: TIOTROPIUM BROM INH 18 MCG/CAP INH SCH (05:16)
[2019-02-21 05:24] LABS: PLATELET COUNT, AUTOMATED 159 K/uL (150-450)
[2019-02-21] MEDS: DOXYCYCLINE HYCL 100 MG VIAL 100 MG in NS(*) 0.9% 250 ML BAG 250 ML IV SCH ×2 (05:29→17:17)
--- NOTE | 2019-02-21 05:59 | RADIOLOGY IMAGING REPORT ---
[facility] PATIENT NAME: Bushra Campos : 1955 MR: [id number] V: [id number] EXAM DATE: ORDERING PHYSICIAN: OSCAR VOSS TECHNOLOGIST: Location: [facility] Patient: Bushra Campos : 1955 Visit/Account:[id number] Date of Sevice: 02/21/2019 AP CHEST 02/21/2019 6:00 AM. INDICATION: pneumonia COMPARISON: Yesterday. FINDINGS/IMPRESSION: Increased right base consolidation/atelectasis and probable small pleural effusion. Question mild le ft base atelectasis. No pneumothorax. Heart size is likely normal. Report Dictated By: Fran Dasilva MD at 02/21/2019 5:54 AM Report E-Signed By: Fran Dasilva MD at 02/21/2019 5:56 AM WSN:[id number]
[2019-02-21] MEDS: ACETAMINOPHEN 325 MG TAB PO PRN ×3 (06:04→18:32)
[2019-02-21] MEDS ORDERED: VANCOMYCIN 1 GM VIAL ONE (06:21)
[2019-02-21] MEDS ORDERED: VANCOMYCIN 0.5 GM VIAL ONE (06:22)
[2019-02-21] MEDS ORDERED: NS(*) 0.9% 250 ML BAG 0 ML ONE (06:23)
[2019-02-21] MEDS ORDERED: NS(*) 0.9% 500 ML BAG 500 ML ONE ×2 (06:32→12:12)
[2019-02-21] MEDS: NS(*) 0.9% 1000 ML BAG 1,000 ML IV PRN ×2 (06:45→23:30)
[2019-02-21] MEDS: LEVOTHYROXINE SOD 0.075 MG TAB PO SCH (06:45)
--- NOTE | 2019-02-21 08:05 | Hospitalist Progress Note ---
Subjective Progress Notes Subjective She reports feeling "a little better". Still some dyspnea and cough. Still mildly tachycardic. BPs improved. Physical Exam Vital Signs Date Time Temp Pulse Resp B/P (MAP) Pulse Ox O2 Delivery O2 Flow Rate FiO2 02/21/19 07:33 93 High-Flow Nasal Cannula 7.0 02/21/19 07:26 110 02/21/19 06:30 12 118/67 (84) 02/21/19 05:30 98.8 Intake and Output 02/21/19 07:00 Intake Total 4554 ml Output Total 700 ml Balance 3854 ml Intake Oral 620 ml IV Total 3934 ml Output Urine Total 700 ml # Voids 1 General Appearance: Alert, Awake Neuro: No Gross deficits Cardiovascular: Other (Slightly tachycardic regular distant tones) Respiratory: Other (Diminished sounds with bronchial breath sounds at right base) GI: Soft and Non-Tender (obese) Extremities: Warm, Perfused, Edema (trace both LE) Psych: Alert & Oriented X3 Result Diagram: 02/21/1951002/21/19510 Assessment and Plan Problems: (1) Sepsis Status: Acute Assessment & Plan: Most likely from pneumonia. She is growing GPC in blood cultures. She is on IV Rocephin, doxycycline, and vancomycin. She is also on IV steroids and IV fluids. Overall, she has shown some improvements. Continue close monitoring in ICU. (2) Community acquired pneumonia Status: Acute Assessment & Plan: She presented with a couple days of a non-productive cough and a day of chills and myalgia. She had a fever to 101.2, heart rate to 110, elevated creatinine, hypoxia and borderline hypotensive. CXR shows RLL infiltrate. She is currently on Rocephin, Doxycycline, and vancomycin recently started as well. She is also on IV steroids. Will re-check lactate. Continue breathing treatments. (3) Acute renal failure Status: Acute Assessment & Plan: Baseline creatine has been about 0.9. At admission it was 1.2, but alexandr to 1.9 and is now slightly improved to 1.8. Urine output has been acceptable. Will continue IV fluids. We have also stopped NSAID/Lasix. Watch closely. (4) COPD (chronic obstructive pulmonary disease) Status: Chronic Assessment & Plan: Continue supplemental oxygen, Advair, Spiriva, DuoNeb and prn Albuterol. Started IV steroids as well. (5) Diabetes mellitus, type 2 Status: Chronic Assessment & Plan: Hold metformin and use SSI level 2 for now. The lactic acidosis is probably due to acute infection/sepsis, but should probably stop the metformin completely. (6) Chronic pain Status: Chronic Assessment & Plan: Continue chornic Lyrica, Savella, but will hold diclofenac s econdary to elevated creatinine. (7) Anxiety and depression Status: Chronic Assessment & Plan: Continue chronic venlafaxine. (8) GERD (gastroesophageal reflux disease) Status: Chronic Assessment & Plan: Chronically on Prilosec, but will use Protonix in the hospital. (9) Morbid obesity with BMI of 45.0-49.9, adult Status: Chronic Exam Sepsis Risk: Severe Sepsis Risk CHARLIE SOW MD Feb 21, 2019 08:05
[2019-02-21] MEDS: INSULIN HUM LISPRO 100 UN/ML 3 ML VIAL SUBQ PRN ×4 (08:06→20:35)
[2019-02-21] MEDS: MILNACIPRAN 50 MG PO SCH ×2 (08:20→20:27)
[2019-02-21] MEDS: guaiFENesin 600 MG TABCR PO SCH ×3 (08:20→21:00)
[2019-02-21] MEDS: PANTOPRAZOLE SOD 40 MG TABEC PO SCH (08:21)
[2019-02-21] MEDS: ENOXAPARIN 40 MG/0.4ML SYR SC SCH (08:21)
[2019-02-21] MEDS: PREGABALIN PO SCH ×3 (08:21→20:27)
[2019-02-21] MEDS: VENLAFAXINE XR 75 MG CAPCR PO SCH (08:55)
--- NOTE | 2019-02-21 10:58 | Medical Nutrition Therapy ---
Nutrition Anthropometrics Height (Inches): 64.00 Height (Calculated Centimeters: 162.083354 Weight (Pounds): 277 Weight (Calculated Kilograms): 125.730 [place] Nutrition Score: Excellent [place] Nutrition Risk Score: 19 Dietary Referral Nutrition Risk Factors: Nutrition Risk Comment: Physical Findings Physical Appearance: Morbidly Obese 40+ Skin Appearance Skin Appearance: Edema Edema Location Modifier: Both Edema Location: Arm Type of Edema: Degree of Edema: 1+ Gastrointestinal Symptoms GI Symtoms: Tube Present: Bowel Sounds: Recent Bowel Pattern: Stool Characteristics: Nutritional Diagnosis Nutritional Risk Acuity 1: Acute/ES Renal Nutritional Risk Acuity 2: Sepsis Nutritional Risk Acuity 3: GERD, Morbid Obesity, COPD Unstable Nutritional Risk Acuity 4: Good Appetite, Modified Diet Past Medical History: COPD, HTN, GERD, hypothyroid, osteoarthritis, asthma, hyperlipidemia, fibromyalgia, morbid obesity, FARRAR, anxiety and depression, hypothyroidism, T2DM, hx of smoking, chronic back pain Nutritional Acuity: 1-High Nutrition Diagnosis: Increased Nutrient Needs Nutrition Etiology: Physiological Causes Nutrition Problem/Etiology/Sym: Increased nutrient needs as realted to physioloigcal causes as evidenced by sepsis. Energy Requirement: 2556 (m st jeor X 1.1 X 1.3 elevated due to sepsis) Protein Requirement: 125 (1 g protein/ kg increased for sepsis) Fluid Requirement: 2559 (1 mL/kcal) Nutrition Intervention: Cont diet as ordered, Encourage intake, Check glucose Nutrition Monitoring & Eval Nutrition Goals: Eat 50-100% Meal Nutrition Follow-Up: Good Intake Nutrition Monitoring: Pt consuming 100% of meals offered RD Patient Assessment Time: [address] Assessment Type: RD Screen Patient Nutrition Acuity: 2-Moderate Follow Up Date: Feb 23, 2019 Nutritional Comment: Pt admitted with nausea and loose stool, cough, fever, hypoxia, and tachycardia. Dx with community acquired pneumonia, ARF, and sepsis. Hx of COPD, HTN, GERD, hypothyroid, osteoarthritis, asthma, hyperlipidemia, fibromyalgia, morbid obesity, FARRAR, anxiety and depression, hypothyroidism, T2DM, hx of smoking, and chronic back pain. Pt taking enoxaparin and insulin.Pt on ADA diet with 100% intake of meal offered. Pt random glucose of 164 is elevated. Pt with 1+ pitting edema in BLE and nonpitting edema in both arms. Pt WBC of 24.3 are increased. RBC of 4.10 are decreased as is hgb of 11.2. Na is decreased at 135, while BUN of 23, creatinine of 1.80, total protein of 5.6 and albumin of 3.3 are decreased. Continue to monitor intakes and blood glucose levels. -GARRETT MENDOZA Feb 21, 2019 10:58
--- NOTE | 2019-02-21 11:13 | Pharmacy Note ---
Vancomycin Management Note Vanco Dosing Note Pharmacy Services Pharmacokinetic Dosing Consult, Vancomycin Pharmacy has been consulted for dosing and monitoring of vancomycin for 63 yo female for sepsis and bilateral pneumonia. Pertinent Past Medical History: COPD, DMII Antibiotics prior to admission: No Additional Antimicrobials: Rocephin 2 gm IV daily start 02/20/19 Doxycycline 100 mg IV q12h start 02/20/19 Patient Information: Height (cm): 162.56 Actual Body Weight (ABW): 126 kg ; IBW 54.7 kg ; AdjBW 83.2 kg Pertinent Lab Tests WHITE BLOOD COUNT 02/20 16.9 ; 02/21 24.3 NEUTROPHILS 02/20 86.8% ; 02/21 41% with 40% bands SCR 02/20 1.2 02/21 1.8 Lactate 02/20 7.7 then 5.3 ; 02/21 3.2 Culture Results: BLOOD growing GPC (Strep species, Alpha hemolytic) Assessment: CrCl 27 to 41 ml/min using IBW and AdjBW respectively Renal function is worse than baseline of 0.9 Vancomycin Monitoring Assessment Goal Vancomycin Trough Level: 15 -20 Plan: 1) Vancomycin 25 mg/kg loading dose (based on ABW): 2500 mg IV x 1 on 02/21/19 0645 2) Vancomycin maintenance dose (based on ABW): 1500 mg IV q24h 3) Vancomycin monitoring: Random level ordered for 02/22/19 1 hr before dose on 02/22/19 Pharmacy will continue to monitor daily and adjust regimen as appropriate. Thank you for the consult. SEBASTIEN BECKER Feb 21, 2019 11:13
[2019-02-21] MEDS: cefTRIAXone(*) 2 GM VIAL 2 GM in NS(*) 0.9% 100 ML MINI-BAG 100 ML IVPB SCH (16:33)
[2019-02-21] MEDS: SIMVASTATIN 20 MG TAB PO SCH (20:27)
[2019-02-21] MEDS: CYCLOBENZAPRINE HCL 10 MG TAB PO PRN (21:03)
[2019-02-22] VITALS (24 sets, daily range): BP systolic 119–156; BP diastolic 70–100
[2019-02-22] MEDS: methylPREDNIS SUCC 125 MG/2ML IVP SCH ×3 (00:28→16:53)
[2019-02-22] MEDS: TIOTROPIUM BROM INH 18 MCG/CAP INH SCH (05:08)
[2019-02-22] MEDS: SALMETEROL/FLUTIC 250/50 1 INH INH SCH ×2 (05:08→18:00)
[2019-02-22] MEDS: ALBUTEROL/IPRATROPIUM 3 ML NEB NEB SCH ×3 (05:08→17:07)
[2019-02-22 05:10] LABS: PLATELET COUNT, AUTOMATED 228 K/uL (150-450)
[2019-02-22] MEDS: LEVOTHYROXINE SOD 0.075 MG TAB PO SCH (05:19)
[2019-02-22] MEDS: DOXYCYCLINE HYCL 100 MG VIAL 100 MG in NS(*) 0.9% 250 ML BAG 250 ML IV SCH ×2 (05:20→17:49)
--- NOTE | 2019-02-22 06:09 | RADIOLOGY IMAGING REPORT ---
FACILITY: [facility] - [place], [place] PATIENT NAME: Bushra Campos : 1955 MR: [id number] V: [id number] EXAM DATE: [id number] ORDERING PHYSICIAN: CHARLIE SOW TECHNOLOGIST: Location: [facility] [place] Patient: Bushra Campos : 1955 Visit/Account:[id number] Date of Sevice: 02/22/2019 AP CHEST 02/22/2019 6:00 AM. INDICATION: pneumonia COMPARISON: Yesterday. FINDINGS/IMPRESSION: Slightly improved aeration of the right base with persistent consolidation/atelectasis and probable s mall pleural effusion. Mild left base atelectasis similar to prior. No pneumothorax. Heart size is likely normal. Report Dictated By: Fran Dasilva MD at 02/22/2019 6:05 AM Report E-Signed By: Fran Dasilva MD at 02/22/2019 6:06 AM WSN:[id number]
[2019-02-22] MEDS ORDERED: VANCOMYCIN(*) 1 GM VIAL 1 GM, VANCOMYCIN (*) 0.5 GM VIAL 0.5 GM in NS(*) 0.9% 250 ML BA... IVPB SCH ×2 (07:30→20:00)
[2019-02-22] MEDS: INSULIN HUM LISPRO 100 UN/ML 3 ML VIAL SUBQ PRN ×3 (08:32→20:16)
[2019-02-22] MEDS: guaiFENesin 600 MG TABCR PO SCH ×2 (09:30→20:14)
[2019-02-22] MEDS: PANTOPRAZOLE SOD 40 MG TABEC PO SCH (09:30)
[2019-02-22] MEDS: MILNACIPRAN 50 MG PO SCH ×2 (09:30→20:16)
[2019-02-22] MEDS: PREGABALIN PO SCH ×3 (09:30→20:15)
[2019-02-22] MEDS: ENOXAPARIN 40 MG/0.4ML SYR SC SCH (09:30)
[2019-02-22] MEDS: VENLAFAXINE XR 75 MG CAPCR PO SCH (09:30)
[2019-02-22] MEDS: NS(*) 0.9% 1000 ML BAG 1,000 ML IV PRN (13:01)
--- NOTE | 2019-02-22 13:17 | Hospitalist Progress Note ---
Subjective Progress Notes Subjective 63F admitted for sepsis and pneumonia. SHERRIE overnight, improving slowly, O2 needs improving. Patient Complains of: Respiratory: Shortness of Breath Gastrointestinal: No Nausea, No Vomiting Physical Exam Vital Signs Date Time Temp Pulse Resp B/P (MAP) Pulse Ox O2 Delivery O2 Flow Rate FiO2 02/22/19 12:00 109 02/22/19 12:00 98.8 15 156/95 (115) 93 Nasal Cannula 4.0 Intake and Output 02/22/19 07:00 Intake Total 3807 ml Output Total 1330 ml Balance 2477 ml Intake Oral 786 ml IV Total 3021 ml Output Urine Total 1005 ml Other 325 ml # Voids 1 # Bowel Movements 3 General Appearance: Alert, Awake, No Acute Distress Neuro: No Gross deficits ENT: Normal Cardiovascular: Normal Rhythm & Peripheral Pulses Respiratory: No Respiratory Distress Extremities: Soft and Non Tender, Warm, Pulses, Perfused Result Diagram: 02/22/19 0455 02/22/19 0455 Assessment and Plan Problems: (1) Sepsis Status: Acute Assessment & Plan: Improved, secondary to pneumonia. She is growing GPC in blood cultures. She is on IV Rocephin, doxycycline, and vancomycin. She is also on IV steroids and IV fluids. Overall, she has shown some improvements. Continue close monitoring in ICU. (2) Community acquired pneumonia Status: Acute Assessment & Plan: She had a fever to 101.2, heart rate to 110, elevated creatinine, hypoxia and borderline hypotensive. CXR shows RLL infiltrate. She is currently on Rocephin, Doxycycline, and vancomycin. She is also on IV steroids. Continue breathing treatments. (3) Acute on chronic respiratory failure with hypoxemia Assessment & Plan: Baseline 2L O2 at night, continues to have increased O2 demands. (4) Acute renal failure Status: Acute Assessment & Plan: Baseline around creatinine of 1. Urine output has been acceptable. Will continue IV fluids. We have also stopped NSAID/Lasix. Improved. (5) COPD (chronic obstructive pulmonary disease) Status: Chronic Assessment & Plan: Continue supplemental oxygen, Advair, Spiriva, DuoNeb and prn Albuterol. Started IV steroids as well. (6) Diabetes mellitus, type 2 Status: Chronic Assessment & Plan: Hold metformin and use SSI level 2. The lactic acidosis is probably due to acute infection/sepsis, but should probably stop the metformin completely. (7) Chronic pain Status: Chronic Assessment & Plan: Continue chornic Lyrica, Savella, but will hold diclofenac secondary to elevated creatinine. (8) Anxiety and depression Status: Chronic Assessment & Plan: Continue chronic venlafaxine. (9) GERD (gastroesophageal reflux disease) Status: Chronic Assessment & Plan: Chronically on Prilosec, but will use Protonix in the hospital. (10) Morbid obesity with BMI of 45.0-49.9, adult Status: Chronic Exam Sepsis Risk: Severe Sepsis Risk CATALINA ECHAVARRIA DO Feb 22, 2019 13:17
[2019-02-22] MEDS: cefTRIAXone(*) 2 GM VIAL 2 GM in NS(*) 0.9% 100 ML MINI-BAG 100 ML IVPB SCH (16:56)
--- NOTE | 2019-02-22 20:13 | Pharmacy Note ---
Vancomycin Management Note Vanco Dosing Note Vancomycin trough = 16.04 on 02/22 at 1900. Increase the interval to q12 hours and keep the dose at 1500 mg. Crcl improved to 62, using ABW; will redraw a trough at 1900 on 02/23. DEE VU Feb 22, 2019 20:12
[2019-02-22] MEDS: SIMVASTATIN 20 MG TAB PO SCH (20:15)
[2019-02-23] VITALS (11 sets, daily range): BP systolic 143–167; BP diastolic 76–100
[2019-02-23] MEDS: methylPREDNIS SUCC 125 MG/2ML IVP SCH (00:40)
[2019-02-23] MEDS: NS(*) 0.9% 1000 ML BAG 1,000 ML IV PRN (03:01)
[2019-02-23 04:58] LABS: PLATELET COUNT, AUTOMATED 211 K/uL (150-450)
[2019-02-23] MEDS: DOXYCYCLINE HYCL 100 MG VIAL 100 MG in NS(*) 0.9% 250 ML BAG 250 ML IV SCH (05:37)
[2019-02-23] MEDS: TIOTROPIUM BROM INH 18 MCG/CAP INH SCH (05:38)
[2019-02-23] MEDS: SALMETEROL/FLUTIC 250/50 1 INH INH SCH ×2 (05:38→18:07)
[2019-02-23] MEDS: ALBUTEROL/IPRATROPIUM 3 ML NEB NEB SCH ×3 (05:38→18:07)
[2019-02-23] MEDS: LEVOTHYROXINE SOD 0.075 MG TAB PO SCH (05:50)
--- NOTE | 2019-02-23 08:37 | Hospitalist Progress Note ---
Subjective Progress Notes Subjective She reports feeling weak, but overall feeling better. No reported SOB. Physical Exam Vital Signs Date Time Temp Pulse Resp B/P (MAP) Pulse Ox O2 Delivery O2 Flow Rate FiO2 02/23/19 07:15 92 Nasal Cannula 4.0 02/23/19 06:01 98.0 99 18 153/88 (109) Intake and Output 02/23/19 07:00 Intake Total 4198 ml Output Total 1875 ml Balance 2323 ml Intake Oral 1840 ml IV Total 2358 ml Output Urine Total 1875 ml # Voids 8 # Bowel Movements 2 General Appearance: Alert, Awake, No Acute Distress Respiratory: Other (Insp basilar crackles to mid lung) Extremities: Edema (trace pitting in posterior thighs) Result Diagram: 02/23/1945002/23/19450 Assessment and Plan Problems: (1) Sepsis Status: Acute Assessment & Plan: Improved, secondary to pneumonia. She is growing streptococcus pneumonia in blood cultures. She is on IV Rocephin, doxycycline, and vancomycin, but getting changed to just Rocephin. She is also on IV steroids, which will be changed to prednisone and IV fluids. Transfer to Med/Surg. (2) Community acquired pneumonia Status: Acute Assessment & Plan: She presented with a fever to 101.2, heart rate to 110, elevated creatinine, hypoxia and borderline hypotensive. CXR shows RLL infiltrate. Continue breathing treatments. OT/PT to see today. (3) Acute on chronic respiratory failure with hypoxemia Assessment & Plan: Baseline 2L O2 at night, continues to have increased O2 demands. Her weight is up about 6kg, will give a one time dose of Bumex. (4) Acute renal failure Status: Resolved Assessment & Plan: Baseline around creatinine of 1. Urine output has been ac ceptable. Saline locked. We have also stopped NSAID/Lasix. Improved. (5) COPD (chronic obstructive pulmonary disease) Status: Chronic Assessment & Plan: Continue supplemental oxygen, Advair, Spiriva, DuoNeb and prn Albuterol. Started IV steroids as well. (6) Diabetes mellitus, type 2 Status: Chronic Assessment & Plan: Hold metformin and use SSI level 2. The lactic acidosis is probably due to acute infection/sepsis, but should probably stop the metformin completely. (7) Chronic pain Status: Chronic Assessment & Plan: Continue chornic Lyrica, Savella, but will hold diclofenac secondary to elevated creatinine. (8) Anxiety and depression Status: Chronic Assessment & Plan: Continue chronic venlafaxine. (9) GERD (gastroesophageal reflux disease) Status: Chronic Assessment & Plan: Chronically on Prilosec, but will use Protonix in the hospital. (10) Morbid obesity with BMI of 45.0-49.9, adult Status: Chronic Exam Sepsis Risk: Sepsis Risk OSCAR VOSS MD Feb 23, 2019 08:37
[2019-02-23] MEDS: POTASSIUM CHL 10 MEQ TABCR PO SCH ×2 (08:50→16:37)
[2019-02-23] MEDS: PREGABALIN PO SCH ×3 (08:51→20:45)
[2019-02-23] MEDS: predniSONE 20 MG TAB PO SCH (08:53)
[2019-02-23] MEDS: VENLAFAXINE XR 75 MG CAPCR PO SCH (08:53)
[2019-02-23] MEDS: MILNACIPRAN 50 MG PO SCH ×2 (08:53→20:44)
[2019-02-23] MEDS: guaiFENesin 600 MG TABCR PO SCH (08:54)
[2019-02-23] MEDS: PANTOPRAZOLE SOD 40 MG TABEC PO SCH (08:54)
[2019-02-23] MEDS: ENOXAPARIN 40 MG/0.4ML SYR SC SCH (08:55)
[2019-02-23] MEDS ORDERED: BUMETANIDE 1 MG/4 ML SDV IV ONE (09:00)
--- NOTE | 2019-02-23 09:24 | Antimicrobial Stewardship ---
Antimicrobial Stewardship Empiricly appropriate: Yes (Ceftriaxone, Doxycycline, Vancomycin) Significant PMH: Yes (COPD, DM2, HL, Hypothyroidism, anxiety, depression, morbid obesity) Support empiric regimen: Yes Approriate Cultures done: Yes (Blood Cx x 2- S. pneumoniae - sensitive to ceftriaxone) Organism identified: Yes (S. pneumoniae) Review the antibiotic sensitiv: Yes Renal/Hepatic dosing: Yes (Scr improved to 1) Serum concentration checked: Yes (Vancomycin Trough - 16, then 18) Determine cumulative duration: Today is day 4 of antibiotics Determine standard duration: Treatment 10-14 days with bacteremia Comment 63 yo F with a PMH of COPD, DM2, hypothyroidism, HL, anxiety, depression, who presented with aches and chills. She was admitted to the ICU Tmax 101.2 WBC 16.9 -->28.8 Neutrophils %/ Bands% --> 86.8% to 41%/40%bands, 53%/28%bands, 73%/17%bands --> bandemia is improved, WBC is higher Vancomycin Troughs --> 16 mcg/mL, then 18 mcg/mL Chest xray - Bibasilar infiltrates Blood Cx x 2 -->S. pneumoniae--> sensitive to ceftriaxone Plan d/c doxycycline, vancomycin, continue ceftriaxone to complete 10-14 days, repeat blood cultures to ensure bacteremia is cleared in setting of elevated WBC (on steroids). Will monitor and follow cultures closely. Audra Persaud, PharmD, OP AUDRA PERSAUD Feb 23, 2019 09:01
--- NOTE | 2019-02-23 10:25 | Medical Nutrition Therapy ---
Nutrition Anthropometrics Height (Inches): 64.00 Height (Calculated Centimeters: [phone] Weight (Pounds): 278 Weight (Calculated Kilograms): 126.099 BMI: 47.7 [place] Nutrition Score: Excellent [place] Nutrition Risk Score: 18 Dietary Referral Nutrition Risk Factors: Nutrition Risk Comment: Physical Findings Physical Appearance: Morbidly Obese 40+ Skin Appearance Skin Appearance: Edema Edema Location Modifier: Both Edema Location: Arm Type of Edema: Degree of Edema: 1+ Gastrointestinal Symptoms GI Symtoms: Tube Present: Bowel Sounds: Recent Bowel Pattern: Stool Characteristics: Nutritional Diagnosis Nutritional Risk Acuity 2: Sepsis Nutritional Risk Acuity 3: GERD, Morbid Obesity, COPD Unstable Nutritional Risk Acuity 4: Good Appetite, Modified Diet Past Medical History: COPD, HTN, GERD, hypothyroid, osteoarthritis, asthma, hyperlipidemia, fibromyalgia, morbid obesity, FARRAR, anxiety and depression, hypothyroidism, T2DM, hx of smoking, chronic back pain Nutritional Acuity: 2-Moderate Nutrition Diagnosis: Increased Nutrient Needs Nutrition Etiology: Physiological Causes Nutrition Problem/Etiology/Sym: Increased nutrient needs as realted to physioloigcal causes as evidenced by sepsis. Energy Requirement: 2556 (m st jeor X 1.1 X 1.3 elevated due to sepsis) Protein Requirement: 125 (1 g protein/ kg increased for sepsis) Fluid Requirement: 2559 (1 mL/kcal) Nutrition Intervention: Cont diet as ordered, Encourage intake, Check glucose Nutrition Monitoring & Eval Nutrition Goals: Eat 75-100% Meal Nutrition Follow-Up: Good Intake RD Patient Assessment Time: [address] Assessment Type: RD Re-Assessment Patient Nutrition Acuity: 2-Moderate Follow Up Date: Feb 28, 2019 Nutritional Comment: Pt admitted with nausea and loose stool, cough, fever, hypoxia, and tachycardia. Dx with community acquired pneumonia, ARF, and sepsis. Hx of COPD, HTN, GERD, hypothyroid, osteoarthritis, asthma, hyperlipidemia, fibromyalgia, morbid obesity, FARRAR, anxiety and depression, hypothyroidism, T2DM, hx of smoking, and chronic back pain. Pt taking enoxaparin and insulin.Pt on ADA diet with 100% intake of meal offered. Pt random glucose of 164 is elevated. Pt with 1+ pitting edema in BLE and nonpitting edema in both arms. Pt WBC of 24.3 are increased. RBC of 4.10 are decreased as is hgb of 11.2. Na is decreased at 135, while BUN of 23, creatinine of 1.80, total protein of 5.6 and albumin of 3.3 are decreased. Continue to monitor intakes and blood glucose levels. -AKG 02/23 Pt cont on ADA diet, eating 100% of most meals. Pt states appetite has declined. Pt is on prednisone so may see increased appetite and possible wt gain. ARF resolved. Alb 3, RBG 138-202. Pt is recieving insulin. Pt has non-pitting edema. Wt is up 25# since last out patient admit in 11/12/18. Pt reports planning on bariactic surgery. Will see bariatic dietitian. Not interested in diet education at this time. FELICITA WIN Feb 23, 2019 10:25
[2019-02-23] MEDS: INSULIN HUM LISPRO 100 UN/ML 3 ML VIAL SUBQ PRN ×2 (12:16→20:46)
[2019-02-23] MEDS: ALBUTEROL 2.5 MG/3 ML NEB NEB PRN (15:27)
[2019-02-23] MEDS: cefTRIAXone(*) 2 GM VIAL 2 GM in NS(*) 0.9% 100 ML MINI-BAG 100 ML IVPB SCH (16:38)
[2019-02-23] MEDS: CYCLOBENZAPRINE HCL 10 MG TAB PO PRN (20:45)
[2019-02-23] MEDS: SIMVASTATIN 20 MG TAB PO SCH (20:45)
[2019-02-23] MEDS: ACETAMINOPHEN 325 MG TAB PO PRN (20:45)
[2019-02-24 03:40] VITALS: BP 163/93
[2019-02-24] MEDS: TIOTROPIUM BROM INH 18 MCG/CAP INH SCH (05:36)
[2019-02-24] MEDS: SALMETEROL/FLUTIC 250/50 1 INH INH SCH ×2 (05:36→16:57)
[2019-02-24] MEDS: ALBUTEROL/IPRATROPIUM 3 ML NEB NEB SCH ×3 (05:36→16:57)
[2019-02-24] MEDS: LEVOTHYROXINE SOD 0.075 MG TAB PO SCH (05:39)
[2019-02-24 07:18] LABS: PLATELET COUNT, AUTOMATED 229 K/uL (150-450)
[2019-02-24 07:30] VITALS: BP 153/93
[2019-02-24] MEDS: POTASSIUM CHL 10 MEQ TABCR PO SCH (07:40)
[2019-02-24] MEDS: ENOXAPARIN 40 MG/0.4ML SYR SC SCH (10:02)
[2019-02-24] MEDS: PANTOPRAZOLE SOD 40 MG TABEC PO SCH (10:04)
[2019-02-24] MEDS: MILNACIPRAN 50 MG PO SCH ×2 (10:04→20:53)
[2019-02-24] MEDS: PREGABALIN PO SCH ×3 (10:04→20:53)
[2019-02-24] MEDS: predniSONE 20 MG TAB PO SCH (10:05)
[2019-02-24] MEDS: VENLAFAXINE XR 75 MG CAPCR PO SCH (10:05)
[2019-02-24] MEDS: ACETAMINOPHEN 325 MG TAB PO PRN ×2 (10:18→22:19)
--- NOTE | 2019-02-24 11:11 | Hospitalist Progress Note ---
Subjective Progress Notes Subjective She reports some improvements. No fever. Physical Exam Vital Signs Date Time Temp Pulse Resp B/P (MAP) Pulse Ox O2 Delivery O2 Flow Rate FiO2 02/24/19 07:30 98.7 96 12 153/93 (113) 92 Nasal Cannula 3.0 Intake and Output 02/24/19 07:00 Intake Total 1859 ml Output Total 2975 ml Balance -1116 ml Intake Oral 1380 ml IV Total 479 ml Output Urine Total 2975 ml # Voids 16 # Bowel Movements 1 General Appearance: Alert, Awake Cardiovascular: Regular Rate and Rhythm Respiratory: Other (decreased bretah sounds throughout with few scattered rhonchi with some bronchial breath sounds at right base) GI: Soft and Non-Tender Extremities: Warm, Perfused Psych: Alert & Oriented X3 Result Diagram: 02/24/1970102/24/19701 Assessment and Plan Problems: (1) Sepsis Status: Acute Assessment & Plan: Improved, secondary to pneumonia. She is growing streptococcus pneumonia in blood cultures. She is on IV Rocephin currently (initially started on doxycycline, and vancomycin as well). She is also on oral prednisone. Oxygen requirement is slowly improving. No changes at this time. Will start to mobilize. (2) Community acquired pneumonia Status: Acute Assessment & Plan: She presented with a fever to 101.2, heart rate to 110, elevated creatinine, hypoxia and borderline hypotensive. CXR shows RLL infiltrate. Antibiotics as noted above. Continue O2/breathing treatments. OT/PT following. (3) Acute on chronic respiratory failure with hypoxemia Assessment & Plan: Baseline 2L O2 at night, continues to have slightly increased O2 demands (only 3L now). Her weight was up about 6kg and received a one time dose of Bumex. (4) Acute renal failure Status: Resolved Assessment & Plan: Baseline around creatinine of 1.0. It was as high as 1.9 and is now 1.0 today. Urine output has been acceptable. Saline locked. We have also stopped NSAID/Lasix. Improved. (5) COPD (chronic obstructive pulmonary disease) Status: Chronic Assessment & Plan: Continue supplemental oxygen, Advair, Spiriva, DuoNeb and prn Albuterol. She is now on oral steroids as well. (6) Diabetes mellitus, type 2 Status: Chronic Assessment & Plan: We have stopped the metformin and are using SSI level 2. The lactic acidosis is probably due to acute infection/sepsis, but should probably stop the metformin completely. (7) Chronic pain Status: Chronic Assessment & Plan: Continue chornic Lyrica, Savella, but will hold diclofenac secondary to elevated creatinine. (8) Anxiety and depression Status: Chronic Assessment & Plan: Continue chronic venlafaxine. (9) GERD (gastroesophageal reflux disease) Status: Chronic Assessment & Plan: Chronically on Prilosec, but will use Protonix in the hospital. (10) Morbid obesity with BMI of 45.0-49.9, adult Status: Chronic Exam Sepsis Risk: Sepsis Risk CHARLIE SOW MD Feb 24, 2019 11:11
[2019-02-24 11:41] VITALS: BP 156/86
[2019-02-24] MEDS: INSULIN HUM LISPRO 100 UN/ML 3 ML VIAL SUBQ PRN ×3 (11:45→20:55)
[2019-02-24 15:21] VITALS: BP 155/88
[2019-02-24] MEDS: cefTRIAXone(*) 2 GM VIAL 2 GM in NS(*) 0.9% 100 ML MINI-BAG 100 ML IVPB SCH (16:53)
[2019-02-24 19:00] VITALS: BP 154/92
[2019-02-24] MEDS: SIMVASTATIN 20 MG TAB PO SCH (20:53)
[2019-02-24] MEDS: CYCLOBENZAPRINE HCL 10 MG TAB PO PRN (22:19)
[2019-02-25] MEDS: LEVOTHYROXINE SOD 0.075 MG TAB PO SCH (05:44)
[2019-02-25] MEDS: SALMETEROL/FLUTIC 250/50 1 INH INH SCH (05:55)
[2019-02-25] MEDS: ALBUTEROL/IPRATROPIUM 3 ML NEB NEB SCH ×2 (05:55→11:23)
[2019-02-25] MEDS: TIOTROPIUM BROM INH 18 MCG/CAP INH SCH (05:55)
[2019-02-25 06:06] LABS: PLATELET COUNT, AUTOMATED 219 K/uL (150-450)
[2019-02-25 06:57] VITALS: BP 168/88
[2019-02-25] MEDS: ACETAMINOPHEN 325 MG TAB PO PRN (07:41)
[2019-02-25] MEDS: ENOXAPARIN 40 MG/0.4ML SYR SC SCH (09:00)
[2019-02-25] MEDS: PREGABALIN PO SCH (09:19)
[2019-02-25] MEDS: predniSONE 20 MG TAB PO SCH (09:20)
[2019-02-25] MEDS: VENLAFAXINE XR 75 MG CAPCR PO SCH (09:20)
[2019-02-25] MEDS: PANTOPRAZOLE SOD 40 MG TABEC PO SCH (09:20)
[2019-02-25] MEDS: MILNACIPRAN 50 MG PO SCH (09:21)
[2019-02-25] MEDS ORDERED: PRED-1 PO (10:14)
[2019-02-25] MEDS ORDERED: LEVO750T27 PO (10:14)
--- NOTE | 2019-02-25 10:19 | Hospitalist Depart ---
Discharge Summary Reason for Hosp/Final Diag: (1) Sepsis Status: Acute Hospital Course & Plan: Improved, secondary to pneumonia. She did require stress dose corticosteroids and will complete a prednisone taper. (2) Community acquired pneumonia Status: Acute Hospital Course & Plan: She presented with a fever to 101.2 and her chest x-ray did show an infiltrate in bilateral lungs. She was on empiric treatment with ceftriaxone. Her cultures have grown Streptococcus pneumoniae. She will complete a course of oral levofloxacin. (3) Acute on chronic respiratory failure with hypoxemia Hospital Course & Plan: She is now at her baseline oxygen requirement. (4) Acute renal failure Status: Resolved Hospital Course & Plan: Resolved with Iv fluids. (5) COPD (chronic obstructive pulmonary disease) Status: Chronic Hospital Course & Plan: Continue supplemental oxygen, Advair, Spiriva, DuoNeb and prn Albuterol. She is now on oral steroids as well. (6) Diabetes mellitus, type 2 Status: Chronic Hospital Course & Plan: Her metformin was discontinued secondary to lactic acidosis. Her sugars have been elevated, but suspect this is secondary to steroids. She may require another medication if they remain elevated once the steroids are complete. (7) Chronic pain Status: Chronic Hospital Course & Plan: She is on chronic treatment with Lyrica, Savella, and diclofenac. (8) Anxiety and depression Status: Chronic Hospital Course & Plan: She is on chronic treatment with venlafaxine. (9) GERD (gastroesophageal reflux disease) Status: Chronic Hospital Course & Plan: She is on chronic treatment with Prilosec. (10) Morbid obesity with BMI of 45.0-49.9, adult Status: Chronic Departure Latest Vital Signs Laboratory Tests Test 02/24/19 11:40 02/24/19 16:52 02/24/19 20:51 02/25/19 05:55 Whole Blood Glucose 225 mg/DL 169 mg/DL 235 mg/DL White Blood Count 22.5 k/uL Red Blood Count 4.49 M/uL Hemoglobin 12.1 g/dL Hematocrit 37.4 % Mean Corpuscular Volume 83.2 fL Mean Corpuscular Hemoglobin 27.0 pg Mean Corpuscular Hemoglobin Concent 32.5 g/dL Red Cell Distribution Width 17.1 % Platelet Count 219 K/uL Mean Platelet Volume 7.8 fL Neutrophils (%) (Auto) % Lymphocytes (%) (Auto) % Monocytes (%) (Auto) % Eosinophils (%) (Auto) % Basophils (%) (Auto) % Nucleated RBC Relative Count (auto) /100WBC Neutrophils # (Auto) K/uL Lymphocytes # (Auto) K/uL Monocytes # (Auto) K/uL Eosinophils # (Auto) K/uL Basophils # (Auto) K/uL Nucleated RBC Absolute Count (auto) K/uL Neutrophils % (Manual) 54 % Band Neutrophils % 17 % Lymphocytes % (Manual) 6 % Monocytes % (Manual) 11 % Eosinophils % (Manual) 3 % Basophils % (Manual) 0 % Metamyelocytes % 7 % Myelocytes % 2 % Peripheral Blood Smear Yes Y/N Sodium Level 139 mmol/L Potassium Level 3.9 mmol/L Chloride Level 103 mmol/L Carbon Dioxide Level 29 mmol/L Blood Urea Nitrogen 24 mg/dl Creatinine 0.80 mg/dl Glomerular Filtration Rate Calc > 60.0 Random Glucose 77 mg/dl Calcium Level 8.4 mg/dl Total Bilirubin 0.2 mg/dl Aspartate Amino Transf (AST/SGOT) 20 U/L Alanine Aminotransferase (ALT/SGPT) 33 U/L Alkaline Phosphatase 102 U/L Total Protein 5.6 g/dl Albumin 3.1 g/dl Current Medications Medications (Trade) Dose Ordered Sig/Brittany Route PRN Reason Start Time Stop Time Status Last Admin Dose Admin Albuterol/ Ipratropium (Duoneb Soln(*) 3 ml Neb (Or Equiv)) 3 ml ONCE ONCE NEB 02/20/19 14:45 02/20/19 14:47 DC 02/20/19 14:58 Ketorolac Tromethamine (Toradol (*) 30 Mg/ml Vial (Or Equiv)) 30 mg ONCE ONCE IVP 02/20/19 14:45 02/20/19 14:47 DC 02/20/19 14:53 Sodium Chloride 500 ml @ 0 mls/hr Q0M ONCE IV 02/20/19 14:45 02/20/19 14:47 DC 02/20/19 14:53 Sodium Chloride (NS Flush) 10 ml PRN PRN IVP FLUSH 02/20/19 16:00 03/22/19 15:59 Sodium Chloride 1,000 ml @ 100 mls/hr Q10H PRN IV RUN CONTINUOUSLY FOR HYDRATION 02/20/19 15:57 02/23/19 07:58 DC 02/23/19 03:01 Acetaminophen (Tylenol(*)325 Mg Tab (Or Equiv)) 650 mg Q6H PRN PO PAIN OR FEVER 100 OR GREATER 02/20/19 16:00 03/22/19 15:59 02/25/19 07:41 Ceftriaxone Sodium 2 gm/ Sodium Chloride 100 ml @ 200 mls/hr Q24H@1700 IVPB 02/20/19 17:00 03/06/19 16:59 02/24/19 16:53 Methylprednisolone Sodium Succinate (Solu-MEDROL SUCC(*) 125 MG/2 ML VIAL (OR EQV)) 60 mg Q8H IVP 02/20/19 17:00 02/23/19 08:03 DC 02/23/19 00:40 Albuterol Sulfate (Proventil(*) 0.083% Neb Soln (Or Equiv)) 2.5 mg Q2HR PRN NEB DYSPNEA 02/20/19 16:00 03/22/19 15:59 02/23/19 15:27 Albuterol/ Ipratropium (Duoneb Soln(*) 3 ml Neb (Or Equiv)) 3 ml TIDR NEB 02/20/19 18:00 03/22/19 17:59 02/25/19 05:55 Guaifenesin (Mucinex(*) 600 Mg Tabcr (Or Equiv)) 600 mg BID PO 02/20/19 21:00 02/23/19 16:44 DC 02/22/19 09:30 Ondansetron HCl (Zofran(*) 4 Mg/ 2 ml(Or Equiv)) 4 mg Q4H PRN IVP NAUSEA/VOMITING 02/20/19 16:00 03/22/19 15:59 Insulin Human Lispro (HumaLOG 100 UN/ ML 3 ML VIAL (OR EQUIV)) 2-10 UNITS SS PRN SUBQ SLIDING SCALE INSULIN 02/20/19 16:00 03/22/19 15:59 02/24/19 20:55 Enoxaparin Sodium (Lovenox 40 Mg/ 0.4 ml Syr (Or Equiv)) 40 mg Q24H SC 02/21/19 09:00 03/23/19 08:59 02/24/19 10:02 Doxycycline Hyclate 100 mg/ Sodium Chloride 250 ml @ 250 mls/hr Q12H@0600,1800 IV 02/20/19 18:00 02/23/19 07:58 DC 02/23/19 05:37 Tiotropium [place] (Spiriva Inh 18 Mcg/Cap (Or Equiv)) 18 mcg QDAYR INH 02/21/19 06:00 03/23/19 05:59 02/25/19 05:55 Cyclobenzaprine HCl (Flexeril(*) 10 Mg Tab (Or Equiv)) 5 mg Q8H PRN PO MUSCLE SPASMS 02/20/19 16:15 03/22/19 16:14 02/24/19 22:19 Salmeterol Xinafoate/ Fluticasone (Advair Diskus 250/50 1 Inh (Or Equiv)) 1 PUFF BIDR INH 02/20/19 18:00 03/22/19 17:59 02/25/19 05:55 Levothyroxine Sodium (Synthroid 0.075 Mg Tab (Or Equiv)) 0.075 mg QDAY@06 PO 02/21/19 06:00 03/23/19 05:59 02/25/19 05:44 Milnacipran HCl (Savella 50 Mg (Or Equiv)) 100 mg BID PO 02/20/19 21:00 03/22/19 20:59 02/25/19 09:21 Pantoprazole Sodium (Protonix (*) (Or Equiv)) 40 mg QDAY PO 02/21/19 09:00 03/23/19 08:59 02/25/19 09:20 Pregabalin (Lyrica 50 Mg Cap (Or Equiv)) 200 mg TID PO 02/20/19 21:00 03/06/19 20:59 UNV Simvastatin (Zocor 20 Mg Tab (Or Equiv)) 20 mg QHS PO 02/20/19 21:00 03/22/19 20:59 02/24/19 20:53 Venlafaxine HCl (Effexor-Xr 75 Mg Capcr (Or Equiv)) 150 mg QDAY PO 02/21/19 09:00 03/23/19 08:59 02/25/19 09:20 Pregabalin (Lyrica/Lyrica 50 Mg Cap (Or Equiv)) 200 mg TID PO 02/20/19 21:00 03/06/19 20:59 02/25/19 09:19 Lactated Ringer's 1,000 ml @ 0 mls/hr Q0M ONCE IV 02/20/19 17:25 02/20/19 17:44 DC 02/20/19 17:49 Lactated Ringer's 1,000 ml @ 0 mls/hr Q0M ONCE IV 02/20/19 17:25 02/20/19 17:44 DC 02/20/19 19:12 Methylprednisolone Sodium Succinate (Solu-MEDROL SUCC(*) 125 MG/2 ML VIAL (OR EQV)) 125 mg ONCE ONCE IVP 02/20/19 21:15 02/20/19 21:22 DC 02/20/19 22:14 Lactated Ringer's 500 ml @ 0 mls/hr Q0M ONCE IV 02/20/19 22:40 02/20/19 22:45 DC Lactated Ringer's 1,000 ml @ As Directed STK-MED ONCE .ROUTE 02/20/19 22:48 02/20/19 22:49 DC 02/21/19 01:39 Norepinephrine Bitartrate 4 mg/ Dextrose 250 ml @ 0 mls/hr PRN PRN IV TITRATE 02/21/19 00:25 02/23/19 07:58 DC Vancomycin HCl 2.5 gm/Sodium Chloride 500 ml @ 166.667 mls/hr ONCE ONCE IVPB 02/21/19 05:00 02/21/19 07:59 DC 02/21/19 06:43 Vancomycin HCl (Vancocin(*) 1 Gm Vial (Or Equiv)) 2 gm STK-MED ONCE .ROUTE 02/21/19 06:21 02/21/19 06:22 DC Vancomycin HCl (Vancocin (*) 0.5 Gm Vial (Or Equiv)) 0.5 gm STK-MED ONCE .ROUTE 02/21/19 06:22 02/21/19 06:24 DC Sodium Chloride 0 ml @ As Directed STK-MED ONCE .ROUTE 02/21/19 06:23 02/21/19 06:24 DC Sodium Chloride 500 ml @ As Directed STK-MED ONCE .ROUTE 02/21/19 06:32 02/21/19 06:33 DC Vancomycin HCl 1 gm/Vancomycin HCl 0.5 gm/Sodium Chloride 265 ml @ 176.667 mls/hr Q24H@0730 IVPB 02/22/19 07:30 02/22/19 19:56 DC 02/22/19 08:09 Sodium Chloride 500 ml @ As Directed STK-MED ONCE .ROUTE 02/21/19 12:12 02/21/19 12:13 DC 02/21/19 12:12 Vancomycin HCl 1 gm/Vancomycin HCl 0.5 gm/Sodium Chloride 250 ml @ 176.667 mls/hr Q12H@0800,2000 IVPB 02/22/19 20:00 02/23/19 07:58 DC 02/22/19 20:17 Prednisone (predniSONE (*) 20 MG TAB) 40 mg QDAY PO 02/23/19 09:00 03/25/19 08:59 02/25/19 09:20 Bumetanide (Bumex 1 Mg/4 ml Vial (Or Equiv)) 1 mg ONCE ONCE IV 02/23/19 09:00 02/23/19 09:01 DC 02/23/19 08:55 Potassium Chloride (Micro K (*) 10 Meq Tabcr (Or Equiv)) 20 meq BIDBS PO 02/23/19 08:20 02/24/19 08:19 DC 02/24/19 07:40 Weight (Pounds): 263 Weight (Ounces): 8.0 Result Diagram: 02/25/1955402/25/19554 Condition: Improved Discharge: Home, Home Health Discharge Instructions Home Meds Active Scripts Prednisone 10 Mg Tab (PREDNISONE 10 MG TAB) 10 Mg Tablet, 10 MG PO DIRECTED, #30 TAB Take 4 tab daily x 3 days, then 3 tab daily x 3 days, then 2 tab daily x 3 days, then 1 tab daily x 3 days Prov:YG LARA DO 02/25/19 Levofloxacin 750 Mg Tab (LEVOFLOXACIN 750 MG TAB) 750 Mg Tablet, 750 MG PO QDAY, #3 TAB Prov:YG LARA DO 02/25/19 Pregabalin (LYRICA) 200 Mg Cap, 200 MG PO TID, #90 CAP 5 Refills Prov:FRANCIS PEDRO MD 02/16/19 Fluticasone/Salmeterol (ADVAIR 250-50 DISKUS) 1 Each Disk.w.dev, 1 EACH IH BID for 90 Days, #1 DISK 4 Refills Prov:FRANCIS PEDRO MD 01/14/19 Cyclobenzaprine Hcl (CYCLOBENZAPRINE HCL) 5 Mg Tablet, 5 MG PO QDAY PRN for muscle pain, #30 TAB 1 Refill Prov:FRANCIS PEDRO MD 12/24/18 Simvastatin (SIMVASTATIN) 20 Mg Tablet, 20 MG PO HS, #30 TAB 3 Refills Prov:FRANCIS PEDRO MD 12/21/18 Milnacipran (SAVELLA) 100 Mg Tablet, 100 MG PO BID, #60 TAB 6 Refills Prov:FRANCIS PEDRO MD 11/30/18 Diclofenac Sodium (DICLOFENAC SODIUM) 50 Mg Tablet.dr, 50 MG PO BID PRN for pain, #60 TAB 4 Refills Prov:FRANCIS PEDRO MD 11/30/18 Diaper,Brief,Adult,Disposable (ADULT BRIEF) 1 Each Each, CON MC Q30D for incon tinence, #3 12 Refills 3 cases/month. Pt to use up to 8 briefs/day. Length of need: 99 months Dx: R32 & R15.9 NPI of physician: [id number] Prov:FRANCIS PEDRO MD 11/17/18 Levothyroxine Sodium (LEVOTHYROXINE SODIUM) 75 Mcg Tablet, 75 MCG PO QDAY, #90 TAB 4 Refills Prov:FRANCIS PEDRO MD 08/26/18 Furosemide (LASIX) 40 Mg Tablet, 1 TAB PO DAILY PRN for edema, #90 TAB 1 Refill Prov:FRANCIS PEDRO MD 06/08/18 Ipratropium/Albuterol Sulfate (IPRAT-ALBUT 0.5-3(2.5) MG/3 ML) 3 Ml Ampul.neb, 3 ML IH Q4-6H PRN for SHORTNESS OF BREATH, #100 VIAL 9 Refills Prov:FRANCIS PEDRO MD 06/04/18 Albuterol Sulfate 90 Mcg/Act (PROAIR HFA 90 MCG/ACT) 8.5 Gm Hfa.aer.ad, 1-2 PUFF IH 3-4XD PRN for shortness of breath, #1 INHALER 9 Refills Prov:FRANCIS PEDRO MD 06/04/18 Tiotropium [place] (SPIRIVA) 18 Mcg/Cap Inh, 18 MCG INH DAILY, #1 INH 9 Refills Prov:FRANCIS PEDRO MD 06/04/18 Omeprazole (OMEPRAZOLE) 20 Mg Capsule.dr, 1 CAP PO QDAY, #90 CAP 3 Refills Prov:FRANCIS PEDRO MD 02/09/18 Venlafaxine Hcl (VENLAFAXINE HCL ER) 150 Mg Cap.er.24h, 150 MG PO QDAY for 90 Days, #90 CAP 3 Refills Prov:FRANCIS PEDRO MD 01/08/18 Discontinued Scripts Metformin Hcl (METFORMIN HCL ER) 500 Mg Tab.er.24, 1 TAB PO QDAY, #30 TAB 3 Refills Prov:FRANCIS PEDRO MD 12/21/18 Doxycycline Hyclate (DOXYCYCLINE HYCLATE) 100 Mg Tablet., 100 MG PO BID for 7 Days, #14 TAB 0 Refills Prov:RADHA ZHAO TRAFFIC DIRECTOR-BC 02/20/19 Diet: Diabetic Activity: As Tolerated Copies to: FRANCIS PEDRO MD ; Venous Thromboembolism Antithrombotics Is Pt On Any Antithrombotics?: No YG LARA DO Feb 25, 2019 10:19
[2019-02-25 10:51] VITALS: BP 157/86
== END 2019-02-25 11:34 | disposition home health service (06) | DRG 871 ==
LOC: ER 13:40 → MED 16:06 → ICU 21:50 → MED 02-23 12:45
PROVIDERS: ADMIT Internal Medicine; ATTEND Internal Medicine
PROC: 06HM33Z Insertion of Infusion Device into Right Femoral Vein, Percutaneous Approach (ICD-10-PCS; principal; 2019-02-21)
DX: A40.3 Sepsis due to Streptococcus pneumoniae (principal); R65.20 Severe sepsis without septic shock; J18.9 Pneumonia, unspecified organism; J96.21 Acute and chronic respiratory failure with hypoxia; N17.9 Acute kidney failure, unspecified; J44.0 Chronic obstructive pulmonary disease with (acute) lower respiratory infection; E87.2 Acidosis; Z68.42 Body mass index [BMI] 45.0-49.9, adult; G89.29 Other chronic pain; F41.8 Other specified anxiety disorders; K21.9 Gastro-esophageal reflux disease without esophagitis; E66.01 Morbid (severe) obesity due to excess calories; E11.65 Type 2 diabetes mellitus with hyperglycemia; T38.0X5A Adverse effect of glucocorticoids and synthetic analogues, initial encounter; I10 Essential (primary) hypertension; M79.7 Fibromyalgia; E03.9 Hypothyroidism, unspecified; F43.12 Post-traumatic stress disorder, chronic; E78.5 Hyperlipidemia, unspecified; Z99.81 Dependence on supplemental oxygen; Z79.84 Long term (current) use of oral hypoglycemic drugs; Z88.0 Allergy status to penicillin; Z88.2 Allergy status to sulfonamides; Z78.0 Asymptomatic menopausal state; Z90.49 Acquired absence of other specified parts of digestive tract
CPT/HCPCS: 36415; 36416; 71045; 71046; 80202; 82040; 82247; 82310; 82374; 82435; 82565; 82803; 82947; 82948; 83605; 84075; 84132; 84155; 84295; 84450; 84460; 84520; 85025; 87040; 87077; 87186; 87502; 94640; 94667; 94668; 96361; 96372; 96374; 97162; 97165; 99285; C1758; J0696; J1650; J1885; J2930; J3370; J3490; J3535; J7030; J7040; J7050; J7120; J7512; J7613

== ENCOUNTER → 2019-02-20 | Outpatient (CLI) | payer MEDICARE, MEDICAID ==
[~2019-02-20] MED LIST changes: +DOXY-228 PO
[2019-02-21 09:25] VITALS: BMI 47.5
== END ==
LOC: AMB 13:10
PROVIDERS: ATTEND Nurse Practitioner
DX: R06.00 Dyspnea, unspecified (principal); R68.83 Chills (without fever); R11.0 Nausea; R53.1 Weakness
CPT/HCPCS: A0425; A0427

== ENCOUNTER → 2019-03-08 | Outpatient (CLI) | payer MEDICARE, MEDICAID ==
[2019-02-21 09:25] VITALS: BMI 47.5
[~2019-03-08] MED LIST changes: +DOXY-228 PO; +NYST100016 PO
[2019-03-08 13:49] LABS: PLATELET COUNT, AUTOMATED 298 K/uL (150-450)
--- NOTE | 2019-03-08 14:45 | RADIOLOGY IMAGING REPORT ---
[place] [facility] [place] NAME[place] Bushra Campos : 1955 MR: [id number] V: [id number] EXAM DATE: ORDERING PHYSICIAN: FRANCIS PEDRO TECHNOLOGIST: Location: [facility] [place] Patient: Bushra Campos : 1955 Visit/Account:[id number] Date of Sevice: 03/08/2019 Technique: CHEST PA LAT HISTORY: pneumonia Comparison studies: February 22, 2019, November 05, 2018 FINDINGS: Linear bibasilar opacities are noted. Lung apices are clear. No pleural effusion. The ca rdiac silhouette is unremarkable. IMPRESSION: 1. No acute cardiac pulmonary process. 2. Chronic bibasilar atelectasis and/or scarring. Report Dictated By: Sudheer Lockett DO at 03/08/2019 2:41 PM Report E-Signed By: Sudheer Lockett DO at 03/08/2019 2:42 PM WSN:[email or web address]
== END ==
LOC: LAB 13:25
PROVIDERS: ATTEND Internal Medicine
DX: J96.21 Acute and chronic respiratory failure with hypoxia (principal); J44.9 Chronic obstructive pulmonary disease, unspecified; J18.9 Pneumonia, unspecified organism; A41.9 Sepsis, unspecified organism; E11.9 Type 2 diabetes mellitus without complications; R91.8 Other nonspecific abnormal finding of lung field
CPT/HCPCS: 36415; 71046; 82040; 82247; 82310; 82374; 82435; 82565; 82947; 84075; 84132; 84155; 84295; 84443; 84450; 84460; 84520; 85025

== ENCOUNTER 2019-04-09 09:56 | Emergency (ER) | payer MEDICARE, MEDICAID ==
[2019-02-21 09:25] VITALS: Wt 113.4 kg
[~2019-04-09 09:56] MED LIST changes: -OMEP-125 PO; +OMEP-126 PO
--- NOTE | 2019-04-09 09:58 | ER Report ---
History and Physical Time Seen By : 09:58 HPI/ROS Sore throat for 3-4 days. ALso with cough prior to sore throat. No fever/chills. No muffled voice. No chest pain or abdominal pain. Able to take PO. Remainder of the 14 system rev: Yes Allergies: Coded Allergies: Penicillins (Verified Allergy, Intermediate, MOUTH ULCERS, 02/20/19) Sulfa (Sulfonamide Antibiotics) (Verified Allergy, Intermediate, MOUTH ULCERS, 02/20/19) Home Meds Active Scripts Ipratropium/Albuterol Sulfate (IPRAT-ALBUT 0.5-3(2.5) MG/3 ML) 3 Ml Ampul.neb, 3 ML IH Q4-6H PRN for SHORTNESS OF BREATH, #100 VIAL 9 Refills Prov:FRANCIS PEDRO MD 04/08/19 Omeprazole (OMEPRAZOLE) 20 Mg Capsule.dr, 1 CAP PO QDAY, #90 CAP 3 Refills Prov:FRANCIS PEDRO MD 04/08/19 Albuterol Sulfate 90 Mcg/Act (PROAIR HFA 90 MCG/ACT) 8.5 Gm Hfa.aer.ad, 1-2 PUFF IH 3-4XD PRN for shortness of breath, #1 INHALER 1 Refill Prov:FRANCIS PEDRO MD 04/06/19 Levothyroxine Sodium (LEVOTHYROXINE SODIUM) 75 Mcg Tablet, 75 MCG PO QDAY, #90 TAB 4 Refills Prov:FRANCIS PEDRO MD 04/02/19 Venlafaxine Hcl (VENLAFAXINE HCL ER) 150 Mg Cap.er.24h, 150 MG PO QDAY for 90 Days, #90 CAP 3 Refills Prov:FRANCIS PEDRO MD 03/16/19 Pregabalin (LYRICA) 200 Mg Cap, 200 MG PO TID, #90 CAP 5 Refills Prov:FRANCIS PEDRO MD 02/16/19 Fluticasone/Salmeterol (ADVAIR 250-50 DISKUS) 1 Each Disk.w.dev, 1 EACH IH BID for 90 Days, #1 DISK 4 Refills Prov:FRANCIS PEDRO MD 01/14/19 Cyclobenzaprine Hcl (CYCLOBENZAPRINE HCL) 5 Mg Tablet, 5 MG PO QDAY PRN for muscle pain, #30 TAB 1 Refill Prov:FRANCIS PEDRO MD 12/24/18 Simvastatin (SIMVASTATIN) 20 Mg Tablet, 20 MG PO HS, #30 TAB 3 Refills Prov:FRANCIS PEDRO MD 12/21/18 Milnacipran (SAVELLA) 100 Mg Tablet, 100 MG PO BID, #60 TAB 6 Refills Prov:FRANCIS PEDRO MD 11/30/18 Diclofenac Sodium (DICLOFENAC SODIUM) 50 Mg Tablet.dr, 50 MG PO BID PRN for pain, #60 TAB 4 Refills Prov:FRANCIS PEDRO MD 11/30/18 Diaper,Brief,Adult,Disposable (ADULT BRIEF) 1 Each Each, CON MC Q30D for incontinence, #3 12 Refills 3 cases/month. Pt to use up to 8 briefs/day. Length of need: 99 months Dx: R32 & R15.9 NPI of physician: [id number] Prov:FRANCIS PEDRO MD 11/17/18 Furosemide (LASIX) 40 Mg Tablet, 1 TAB PO DAILY PRN for edema, #90 TAB 1 Refill Prov:FRANCIS PEDRO MD 06/08/18 Tiotropium [place] (SPIRIVA) 18 Mcg/Cap Inh, 18 MCG INH DAILY, #1 INH 9 Refills Prov:FRANCIS PEDRO MD 06/04/18 Hx Smoking: Yes Smoking Status: Former Smoker Exposure to Second Hand Smoke?: Yes (whole family smokes ) Hx Substance Use Disorder: Yes (Pain pills, doesn't recall their name. Hasn't taken pain pills lately) Hx Alcohol Use: No Constitutional Vital Sign - Last 24 Hours 04/09/19 04/09/19 04/09/19 04/09/19 10:02 10:15 10:19 10:19 Temp 98.6 Pulse 97 94 93 Resp 24 18 B/P (MAP) 158/70 Pulse Ox 91 84 O2 Delivery Room Air Room Air 04/09/19 04/09/19 04/09/19 04/09/19 10:23 10:23 10:45 11:15 Pulse 87 94 90 Resp 18 Pulse Ox 96 82 O2 Delivery Nasal Cannula O2 Flow Rate 2.0 04/09/19 04/09/19 11:45 12:04 Pulse 91 B/P (MAP) 149/88 (108) Pulse Ox 94 Physical Exam General Appearance: The patient is alert, has no immediate need for airway protection and no current signs of toxicity. O/P: erythema of posterior o/p. No PAPERHANGER PIPE. No evidene of epiglotitis, no pain with tracheal rock Eyes: Pupils equal and round no injection. Respiratory: Chest is non tender, lungs are clear to auscultation. Cardiac: regular rate and rhythm Neck: Neck is supple and non tender. Extremities have full range of motion and are non tender. Skin: No rashes or lesions. Medical Decision Making Data Points Laboratory Hematology Test 04/09/19 00:00 Group A Streptococcus (PCR) Negative (NEGATIVE) Chemistry Test 04/09/19 00:00 Group A Streptococcus (PCR) Negative (NEGATIVE) ED Course/Re-evaluation ED Course Uncomplicated viral pharyngitis. No evidence of PAPERHANGER PIPE, RPA, epiglotitis. No chest pain, neck pain or GILLESPIE. Will follow up with PCM Decision to Disposition Date: April 09, 2019 Decision to Disposition Time: 12:00 Depart Departure Latest Vital Signs Vital Signs Date Time Temp Pulse Resp B/P (MAP) Pulse Ox O2 Delivery O2 Flow Rate FiO2 04/09/19 12:04 149/88 (108) 04/09/19 11:45 91 94 04/09/19 10:23 Nasal Cannula 2.0 04/09/19 10:23 18 04/09/19 10:02 98.6 Core Temperature (Celsius): 37.2 Impression: Primary Impression: Viral pharyngitis Condition: Improved Disposition: HOME OR SELF-CARE Referrals: FRANCIS PEDRO MD (PCP) Patient Instructions: Pharyngitis (ED) RONAN PINZON MD April 09, 2019 09:58
[2019-04-09] MEDS ORDERED: ALBUTEROL/IPRATROPIUM 3 ML NEB NEB ONE (10:10)
[2019-04-09] MEDS ORDERED: DEXAMETHASONE 4 MG TAB PO ONE (10:50)
--- NOTE | 2019-04-09 11:45 | RADIOLOGY IMAGING REPORT ---
FACILITY: [facility] PATIENT NAME: Bushra Campos : 1955 MR: [id number] V: [id number] EXAM DATE: ORDERING PHYSICIAN: RONAN PINZON TECHNOLOGIST: Location: [facility] Patient: Bushra Campos : 1955 Visit/Account:[id number] Date of Sevice: 04/09/2019 Exam type: CHEST PA LAT History: sob Comparison: March 08, 2019. Findings: There is mild hyperinflation of the lung little and mild bibasilar parenchymal scarring. No evidence of acute pulmonary consolidation identified. The cardiac silhouette is enlarged but unchanged. The re is straightening of normal thoracic kyphosis. IMPRESSION: 1. Mild hyperinflation of the lungs and mild bibasilar scarring although no evidence of acute pulmon liset consolidation Mild cardiomegaly Report Dictated By: Annalee Palumbo MD at 04/09/2019 11:39 AM Report E-Signed By: Annalee Palumbo MD at 04/09/2019 11:41 AM [email or web address]
[2019-04-09] MEDS ORDERED: SALMETEROL/FLUTIC 250/50 1 INH INH ONE (12:00)
[2019-04-09 12:04] VITALS: BP 149/88
== END 2019-04-09 12:09 | disposition home or self-care (01) ==
LOC: ER 10:27
DX: J02.9 Acute pharyngitis, unspecified (principal); Z87.891 Personal history of nicotine dependence; Z79.899 Other long term (current) drug therapy
CPT/HCPCS: 71046; 87653; 94640; 99283; J3535; J7620; J8540

== ENCOUNTER → 2019-04-22 | Outpatient (CLI) | payer MEDICARE, MEDICAID ==
[2019-02-21 09:25] VITALS: BMI 47.5
[~2019-04-22] MED LIST changes: +OMEP-137 PO
--- NOTE | 2019-04-22 13:10 | RADIOLOGY IMAGING REPORT ---
[place]AC[place] [facility] [place]IENT NAME: Bushra Campos : 1955 MR: [id number] V: [id number] EXAM DATE: ORDERING PHYSICIAN: FRANCIS PEDRO TECHNOLOGIST: Location: [facility] Patient: Bushra Campos : 1955 Visit/Account:[id number] Date of Sevice: 04/22/2019 INDICATION: . Chronic back pain and right hip pain DATE: 04/22/2019 1:01 PM. TECHNIQUE: HIP RIGHT, L-SPINE 2 OR 3 VIEW COMPARISON: Hip radiographs November 02, 2017 FINDINGS: Moderate degenerative findings at the right hip and pubic symphysis. Incompletely imaged left hip pr osthesis is grossly unremarkable. The pelvic ring is intact. No significant degenerative findings a t the SI joints. There are five nonrib-bearing lumbar-type vertebral bodies. There is mild rightward curvature of L3 and L4. Disc and endplate degenerative findings are severe at L2-3, L3-4, and L4-5. There are moder ate at L1 to. Vertebral body heights are maintained. There is no evidence of fracture. IMPRESSION: 1. Severe multilevel degenerative findings in the lumbar spine. 2. Moderate degenerative change at the right hip. Report Dictated By: Glenna Rocha MD at 04/22/2019 1:01 PM Report E-Signed By: Glenna Rocha MD at 04/22/2019 1:05 PM [id number]:[id number]
--- NOTE | 2019-04-22 13:11 | RADIOLOGY IMAGING REPORT ---
FACILITY: [facility] PATIENT NAME: Bushra Campos : 1955 MR: [id number] V: [id number] EXAM DATE: ORDERING PHYSICIAN: FRANCIS PEDRO TECHNOLOGIST: Location[place] [facility] [place] Patient: Bushra Campos : 1955 Visit/Account:[id number] Date of Sevice: 04/22/2019 INDICATION: . Chronic back pain and right hip pain DATE: 04/22/2019 1:01 PM. TECHNIQUE: HIP RIGHT, L-SPINE 2 OR 3 VIEW COMPARISON: Hip radiographs November 02, 2017 FINDINGS: Moderate degenerative findings at the right hip and pubic symphysis. Incompletely imaged left hip pr osthesis is grossly unremarkable. The pelvic ring is intact. No significant degenerative findings a t the SI joints. There are five nonrib-bearing lumbar-type vertebral bodies. There is mild rightward curvature of L3 and L4. Disc and endplate degenerative findings are severe at L2-3, L3-4, and L4-5. There are moder ate at L1 to. Vertebral body heights are maintained. There is no evidence of fracture. IMPRESSION: 1. Severe multilevel degenerative findings in the lumbar spine. 2. Moderate degenerative change at the right hip. Report Dictated By: Glenna Rocha MD at 04/22/2019 1:01 PM Report E-Signed By: Glenna Rocha MD at 04/22/2019 1:05 PM WSN:[id number]
== END ==
LOC: RAD 11:26
PROVIDERS: ATTEND Internal Medicine
DX: M16.11 Unilateral primary osteoarthritis, right hip (principal); M47.816 Spondylosis without myelopathy or radiculopathy, lumbar region
CPT/HCPCS: 72100

== ENCOUNTER 2019-05-08 02:42 | Emergency (ER) | payer MEDICARE, MEDICAID ==
[2019-02-21 09:25] VITALS: Wt 113.4 kg
[2019-05-08] MEDS ORDERED: ALBUTEROL/IPRATROPIUM 3 ML NEB NEB ONE ×2 (03:10→03:45)
[2019-05-08] MEDS ORDERED: methylPREDNIS SUCC 125 MG/2ML IVP ONE (03:10)
--- NOTE | 2019-05-08 03:35 | EKG ---
FACILITY: [facility] [place] PATIENT NAME: KEYANA MORLEY : [id number] MR: [id number] V: [id number] EXAM DATE: ORDERING PHYSICIAN: DONNA PINZON TECHNOLOGIST: CHATO Test Reason : DYSPNEA Blood Pressure : / mmHG Vent. Rate : 099 BPM Atrial Rate : 099 BPM P-R Int : 204 ms QRS Dur : 090 ms QT Int : 368 ms P-R-T Axes : 073 -16 065 degrees QTc Int : 472 ms Normal sinus rhythm Low voltage QRS No ST-T abnormalities When compared with ECG of 05-NOV-2018 11:12, No significant change was found Confirmed by OSCAR VOSS ([id number]) on 05/08/2019 6:32:31 AM Referred By: Confirmed By:OSCAR VOSS
--- NOTE | 2019-05-08 03:42 | ER Report ---
History and Physical Time Seen By MD: 02:45 Hx. of Stated Complaint: patient states that she has chronic post nasal drip, but tonight it dried her throat out so much that she started to feel like she was really short of breath. HPI/ROS CHIEF COMPLAINT: Shortness breath HISTORY OF PRESENT ILLNESS: 43-year-old female with COPD, asthma, presents with shortness breath that she says is different from both of these. She states that she gets postnasal drip and has had this for years but has had more difficulty with [place]. She states that it dries out his throat because of that she sometimes has trouble breathing. She went to bed feeling well but awoke about 1 AM with sensation of difficulty breathing because she felt like her throat was clogged. She states that she is not having difficulty moving air through her l ungs. She reports that she tried a breathing treatment at home and it did not help her and she has not had any change in her nasal drainage she is on 2 L at home as needed. She has not needed more oxygen than normal. She is not short of breath on exertion. She had no chest pain or pressure. She has ongoing lower extremity swelling that she says unchanged. She does not know that she has any heart failure. However, she does state she is on water pills. In the Emergency department, she is somewhat improved from when she woke up, however is still having difficulty with breathing stating that she feels her throat is still clogged. REVIEW OF SYSTEMS: Constitutional: No fever, no chills. Eyes: No discharge. ENT: above Cardiovascular: No chest pain, no palpitations. Respiratory: No cough, no shortness of breath. Gastrointestinal: No abdominal pain, no vomiting. Genitourinary: No hematuria. Musculoskeletal: No back pain. Skin: No rashes. Neurological: No headache. Remainder of the 14 system rev: Yes Allergies: Coded Allergies: Penicillins (Verified Allergy, Intermediate, MOUTH ULCERS, 05/08/19) Sulfa (Sulfonamide Antibiotics) (Verified Allergy, Intermediate, MOUTH ULCERS, 05/08/19) Home Meds Active Scripts Fluticasone/Vilanterol (Breo Ellipta 200-25 Mcg INH) 1 Each Blst.w.dev, 1 PUFF PO QAM, #1 INHALATION 6 Refills Prov:FRANCIS PEDRO MD 04/27/19 Fluticasone Prop 50 Mcg Ns (FLONASE 50 MCG NS) 16 Gm [employer].susp, 2 SPRAYS NS QDAY, #1 BOT 3 Refills Prov:FRANCIS PEDRO MD 04/22/19 Omeprazole (OMEPRAZOLE) 20 Mg Tablet.dr, 40 MG PO QDAY for 90 Days, #90 TAB 1 Refill Prov:FRANCIS PEDRO MD 04/22/19 Ipratropium/Albuterol Sulfate (IPRAT-ALBUT 0.5-3(2.5) MG/3 ML) 3 Ml Ampul.neb, 3 ML IH Q4-6H PRN for SHORTNESS OF BREATH, #100 VIAL 9 Refills Prov:FRANCIS PEDRO MD 04/08/19 Albuterol Sulfate 90 Mcg/Act (PROAIR HFA 90 MCG/ACT) 8.5 Gm Hfa.aer.ad, 1-2 PUFF IH 3-4XD PRN for shortness of breath, #1 INHALER 1 Refill Prov:FRANCIS PEDRO MD 04/06/19 Levothyroxine Sodium (LEVOTHYROXINE SODIUM) 75 Mcg Tablet, 75 MCG PO QDAY, #90 TAB 4 Refills Prov:FRANCIS PEDRO MD 04/02/19 Venlafaxine Hcl (VENLAFAXINE HCL ER) 150 Mg Cap.er.24h, 150 MG PO QDAY for 90 Days, #90 CAP 3 Refills Prov:FRANCIS PEDRO MD 03/16/19 Pregabalin (LYRICA) 200 Mg Cap, 200 MG PO TID, #90 CAP 5 Refills Prov:FRANCIS PEDRO MD 02/16/19 Cyclobenzaprine Hcl (CYCLOBENZAPRINE HCL) 5 Mg Tablet, 5 MG PO QDAY PRN for muscle pain, #30 TAB 1 Refill Prov:FRANCIS PEDRO MD 12/24/18 Simvastatin (SIMVASTATIN) 20 Mg Tablet, 20 MG PO HS, #30 TAB 3 Refills Prov:FRANCIS PEDRO MD 12/21/18 Milnacipran (SAVELLA) 100 Mg Tablet, 100 MG PO BID, #60 TAB 6 Refills Prov:FRANCIS PEDRO MD 11/30/18 Diclofenac Sodium (DICLOFENAC SODIUM) 50 Mg Tablet.dr, 50 MG PO BID PRN for pain, #60 TAB 4 Refills Prov:FRANCIS PEDRO MD 11/30/18 Diaper,Brief,Adult,Disposable (ADULT BRIEF) 1 Each Each, CON MC Q30D for incontinence, #3 12 Refills 3 cases/month. Pt to use up to 8 briefs/day. Length of need: 99 months Dx: R32 & R15.9 NPI of physician: [id number] Prov:FRANCIS PEDRO MD 11/17/18 Furosemide (LASIX) 40 Mg Tablet, 1 TAB PO DAILY PRN for edema, #90 TAB 1 Refill Prov:FRANCIS PEDRO MD 06/08/18 Discontinued Scripts Tiotropium [place] (SPIRIVA) 18 Mcg/Cap Inh, 18 MCG INH DAILY, #1 INH 9 Refills Prov:FRANCIS PEDRO MD 06/04/18 Reviewed Nurses Notes: Yes Old Medical Records Reviewed: Yes Hx Smoking: Yes Smoking Status: Former Smoker Exposure to Second Hand Smoke?: Yes (whole family smokes ) Hx Substance Use Disorder: Yes (Pain pills, doesn't recall their name. Hasn't taken pain pills lately) Hx Alcohol Use: No Constitutional Vital Sign - Last 24 Hours 05/08/19 05/08/19 05/08/19 05/08/19 02:46 02:54 02:57 03:00 Temp 99.5 Pulse 96 101 Resp 24 41 B/P (MAP) 147/81 141/71 (94) Pulse Ox 97 96 O2 Delivery Nasal Cannula O2 Flow Rate 2.5 05/08/19 05/08/19 05/08/19 05/08/19 03:12 03:13 03:13 03:27 Pulse 94 101 100 Resp 9 20 19 Pulse Ox 93 95 100 O2 Delivery Nasal Cannula O2 Flow Rate 2.0 05/08/19 05/08/19 05/08/19 05/08/19 03:28 03:42 03:47 03:50 Pulse 96 101 96 100 Resp 20 14 13 20 Pulse Ox 97 100 05/08/19 05/08/19 05/08/19 05/08/19 03:50 03:52 04:07 04:22 Pulse 96 95 98 98 Resp 18 14 14 30 Pulse Ox 96 97 Physical Exam General Appearance: The patient is alert, has no immediate need for airway protection and no signs of toxicity. she is on 2L 02 Eyes: Pupils equal and round no pallor or injection. ENT, Mouth: Mucous membranes are moist. Respiratory: there are no retractions. I auscultate occ exp wheeze on left; breath sounds otherwise nl Cardiovascular: Regular rate and rhythm. no m/r/g Gastrointestinal: Abdomen is soft and non tender, no masses, bowel sounds normal. neurologic alert, no gross deficits Skin: Warm and dry, no rashes. Musculoskeletal: bilateral lower extremity edema to mid calf. moves all ext DIFFERENTIAL DIAGNOSIS: After history and physical exam differential diagnosis was considered for shortness of breath including but not limited to pulmonary infectious process, COPD, asthma, CHF, pulmonary embolus and congestive heart failure. Medical Decision Making Data Points Result Diagram: 05/08/19 0336 05/08/19 0336 Laboratory Hematology Test 05/08/19 03:36 Red Blood Count 4.00 M/uL (4.17-5.56) Mean Corpuscular Volume 85.9 fL (80.0-96.0) Mean Corpuscular Hemoglobin 28.4 pg (26.0-33.0) Mean Corpuscular Hemoglobin Concent 33.1 g/dL (32.0-36.0) Red Cell Distribution Width 17.4 % (11.5-14.5) Mean Platelet Volume 7.7 fL (7.2-11.1) Neutrophils (%) (Auto) 55.8 % (39.4-72.5) Lymphocytes (%) (Auto) 26.2 % (17.6-49.6) Monocytes (%) (Auto) 9.1 % (4.1-12.4) Eosinophils (%) (Auto) 7.7 % (0.4-6.7) Basophils (%) (Auto) 1.2 % (0.3-1.4) Nucleated RBC Relative Count (auto) 0.0 /100WBC Neutrophils # (Auto) 5.2 K/uL (2.0-7.4) Lymphocytes # (Auto) 2.4 K/uL (1.3-3.6) Monocytes # (Auto) 0.8 K/uL (0.3-1.0) Eosinophils # (Auto) 0.7 K/uL (0.0-0.5) Basophils # (Auto) 0.1 K/uL (0.0-0.1) Nucleated RBC Absolute Count (auto) 0.00 K/uL Sodium Level 142 mmol/L (137-145) Potassium Level 3.6 mmol/L (3.5-5.0) Chloride Level 108 mmol/L (98-107) Carbon Dioxide Level 24 mmol/L (22-31) Blood Urea Nitrogen 16 mg/dl (7-18) Creatinine 1.00 mg/dl (0.52-1.04) Glomerular Filtration Rate Calc 55.8 Random Glucose 159 mg/dl (75-110) Calcium Level 8.6 mg/dl (8.4-10.2) Total Bilirubin 0.5 mg/dl (0.2-1.3) Aspartate Amino Transf (AST/SGOT) 41 U/L (0-35) Alanine Aminotransferase (ALT/SGPT) 36 U/L (0-56) Alkaline Phosphatase 96 U/L (0-126) B-Type Natriuretic Peptide 19 pg/ml (0-100) Total Protein 6.4 g/dl (6.3-8.2) Albumin 3.7 g/dl (3.5-5.0) Chemistry Test 05/08/19 03:36 White Blood Count 9.3 k/uL (4.5-11.0) Red Blood Count 4.00 M/uL (4.17-5.56) Hemoglobin 11.4 g/dL (12.0-16.0) Hematocrit 34.4 % (34.0-47.0) Mean Corpuscular Volume 85.9 fL (80.0-96.0) Mean Corpuscular Hemoglobin 28.4 pg (26.0-33.0) Mean Corpuscular Hemoglobin Concent 33.1 g/dL (32.0-36.0) Red Cell Distribution Width 17.4 % (11.5-14.5) Platelet Count 208 K/uL (150-450) Mean Platelet Volume 7.7 fL (7.2-11.1) Neutrophils (%) (Auto) 55.8 % (39.4-72.5) Lymphocytes (%) (Auto) 26.2 % (17.6-49.6) Monocytes (%) (Auto) 9.1 % (4.1-12.4) Eosinophils (%) (Auto) 7.7 % (0.4-6.7) Basophils (%) (Auto) 1.2 % (0.3-1.4) Nucleated RBC Relative Count (auto) 0.0 /100WBC Neutrophils # (Auto) 5.2 K/uL (2.0-7.4) Lymphocytes # (Auto) 2.4 K/uL (1.3-3.6) Monocytes # (Auto) 0.8 K/uL (0.3-1.0) Eosinophils # (Auto) 0.7 K/uL (0.0-0.5) Basophils # (Auto) 0.1 K/uL (0.0-0.1) Nucleated RBC Absolute Count (auto) 0.00 K/uL Glomerular Filtration Rate Calc 55.8 Calcium Level 8.6 mg/dl (8.4-10.2) Total Bilirubin 0.5 mg/dl (0.2-1.3) Aspartate Amino Transf (AST/SGOT) 41 U/L (0-35) Alanine Aminotransferase (ALT/SGPT) 36 U/L (0-56) Alkaline Phosphatase 96 U/L (0-126) B-Type Natriuretic Peptide 19 pg/ml (0-100) Total Protein 6.4 g/dl (6.3-8.2) Albumin 3.7 g/dl (3.5-5.0) EKG/Imaging EKG Interpretation 12 lead EKG: Rhythm: Normal sinus rhythm; rate 99 Hi Hat: Normal QRS: Normal ST segments: t wave flat i, avl no stemi Monitor Interpretation: Normal Sinus Rhythm ED Course/Re-evaluation ED Course 63 f presents via ems with report of difficulty breathing. Specifically she states she has post nasal drip that occ causes congestion in the back of her throat and difficulty breathing. She states this is not like her asthma/copd and has no chest pain/pressure. Her exam is generally nl, as well as her cxr which appears similar to prior. Pt has normal sats, stable vitals throughout ED stay. Her breathing difficulty corresponds very closely to the amount of anxiety she demonstrates. She does not respond to nebs. She does ultimately cough some phlegm that she states she was trying to bring up. She is asymptomatic after this. She does not have recurrence of symptoms on further monitoring. I considered pe, reactive airway disease, tracheal stenosis, acs, pneumonia, chf, or other emergent disease; no e/o these in ED. Pt is stable for d/c. Decision to Disposition Date: May 08, 2019 Decision to Disposition Time: 04:58 Depart Departure Latest Vital Signs Vital Signs Date Time Temp Pulse Resp B/P (MAP) Pulse Ox O2 Delivery O2 Flow Rate FiO2 05/08/19 04:22 98 30 05/08/19 04:07 97 05/08/19 03:13 Nasal Cannula 2.0 05/08/19 03:00 141/71 (94) 05/08/19 02:46 99.5 Core Temperature (Celsius): 37.2 Impression: Primary Impression: Dyspnea and respiratory abnormalities Condition: Improved Disposition: HOME OR SELF-CARE Referrals: FRANCIS PEDRO MD (PCP) 2 Days Patient Instructions: Dyspnea (ED) Additional Instructions: Return for worsening difficulty breathing or any concerns. I recommend you take the flonase twice daily that was prescribed by your primary physician for your symptoms. DONNA PINZON MD May 08, 2019 03:42
[2019-05-08 03:50] LABS: PLATELET COUNT, AUTOMATED 208 K/uL (150-450)
--- NOTE | 2019-05-08 04:19 | RADIOLOGY IMAGING REPORT ---
FACILITY: [facility] - [place] PATIENT NAME: Bushra Campos : 1955 MR: [id number] V: [id number] EXAM DATE: ORDERING PHYSICIAN: DONNA PINZON TECHNOLOGIST: Location: [facility] - [place] Patient: Bushra Campos : 1955 Visit/Account:[id number] Date of Sevice: 05/08/2019 Exam type: CHEST SINGLE AP History: Shortness of breath for one month Comparison: 04/09/2019. Findings: Lungs are hyperinflated. Chronic scarring at left lung base is noted. There is no focal infiltrate, p leural effusion or pneumothorax. Heart size is enlarged. The osseous structures are unremarkable. IMPRESSION: 1. No acute cardiopulmonary disease. Report Dictated By: Elia Myers MD at 05/08/2019 4:11 AM Report E-Signed By: Elia Myers MD at 05/08/2019 4:13 AM [id number]
[2019-05-08] MEDS ORDERED: EPINEPHrine 2.25% 0.5 ML NEB NEB ONE (04:25)
[2019-05-08] MEDS ORDERED: NS 0.9% NEB 3 ML SOLN INH ONE (04:25)
[2019-05-08 05:15] VITALS: BP 138/62
== END 2019-05-08 05:19 | disposition home or self-care (01) ==
LOC: ER 02:45
DX: R06.00 Dyspnea, unspecified (principal)
CPT/HCPCS: 71045; 83880; 85025; 93005; 94640; 96374; 99284; A4218; J2930; J7620; J7699; 82040; 82247; 82310; 82374; 82435; 82565; 82947; 84075; 84132; 84155; 84295; 84450; 84460; 84520

== ENCOUNTER → 2019-05-08 | Outpatient (CLI) | payer MEDICARE, MEDICAID ==
[2019-02-21 09:25] VITALS: BMI 47.5
[~2019-05-08] MED LIST changes: +FLUT1BLS3 PO
== END ==
LOC: AMB 02:10
PROVIDERS: ATTEND Nurse Practitioner
DX: R06.02 Shortness of breath (principal); R53.83 Other fatigue; R00.0 Tachycardia, unspecified
CPT/HCPCS: A0425; A0427